=== PATIENT | male | born 1955 | race Caucasian/White ===

== ENCOUNTER → 2018-03-14 | Outpatient (CLI) | payer BC ==
--- NOTE | 2018-03-14 11:31 | CT ---
CT CHEST FOR PULMONARY EMBOLISM. EXAMINATION TYPE: CT angio chest DATE OF EXAM: 03/14/2018 INDICATION: Shortness of breath for [address] DLP: 516 mGycm, Automated exposure control for dose reduction was used. CONTRAST: Patient injected with 100 mL of Isovue 370. COMPARISON: None TECHNIQUE: CT of the chest is performed on a spiral scan at 2 mm thick sections. Study is performed with intravenous contrast timed for evaluation for pulmonary embolism. This will limit additional po rtions of the evaluation. 3-D MIP images reconstructed by the technologist are reviewed on the compu ter in the coronal and sagittal planes. FINDINGS: No persistent filling defects are evident to suggest an acute pulmonary embolism. No mediastinal or hilar adenopathy enlarged by CT criteria is evident. The ascending aorta diameter at the level of the main pulmonary artery is 3.7 cm. The main pulmonary artery diameter at the bifur cation is 2.9 cm. There are a few punctate nodules present. Some thickening is at the apices. There is a 0.4 cm nodule within the periphery of the right upper lobe. Series 11 image 29. Peripheral based nodule at the pleu ral margin measures 0.3 cm. Series 11 image 31. There is an anterior right upper lobe nodule measurin g 0.3 cm. Series 11 image 32. Additional peripheral nodule measuring 0.4 cm is in the posterior later al right upper lobe. Series 11 image 35. There is a right upper lobe nodule measuring 0.4 cm. Series 11 image 43. In retrospect, these densities as well as the apical thickening appears stable findings are better visualized on the standard CT chest in the low dose CT. Limited CT section through the upper abdomen are unremarkable. IMPRESSIONS: 1. Apical thickening appears stable. Continued monitoring is recommended. 2. Better visualization of stable appearing nodules within the right upper lobe periphery discussed a emma. Monitoring is recommended. Recommendations: 1. Follow-up chest CT with contrast 6 months.
--- NOTE | 2018-03-14 12:07 | EST ---
EXERCISE STRESS AGE: 62 SEX: M HT: 6" WT: 180 PROTOCOL: Chu Stress Test STAGE: I DURATION OF EXERCISE: 4:49 HEART RATE REST: 71 BLOOD PRESSURE REST: 104/72 MAXIMUM HEART RATE ACHIEVED: 116 MAXIMUM BLOOD PRESSURE: 129/60 85% MPHR: 136 100% MPHR: 160 METS: 6.4 INDICATIONS: Shortness of breath. CLINICAL INFORMATION: Patient was exercised for a total period of 4 minutes. Peak heart rate of 116 was achieved. Maximum blood pressure of 129/60 mmHg was noted. Resting EKG shows normal sinus rhythm with normal clear interval and QRS duration and normal ST-T waves. Occasional PACs and PVCs were noted in the postexercise period and short runs of atrial tachycardia were noted. FINAL IMPRESSION: This exercise status is inconclusive to diagnose ischemia because of limited patient's exercise tolerance. No ST-segment depression suggestive of ischemia was noted. In the recovery period patient developed atrial fibrillation with a controlled rate. In the recovery period, patient developed atrial fibrillation with a controlled rate. MMODL / IJN: [id number] /
== END | disposition home or self-care (01) ==
LOC: RADCTMAIN 08:52
PROVIDERS: ATTEND Family Medicine
DX: R91.8 Other nonspecific abnormal finding of lung field (principal); R94.39 Abnormal result of other cardiovascular function study; I48.91 Unspecified atrial fibrillation
CPT/HCPCS: 93017; 71275; Q9967

== ENCOUNTER → 2018-04-11 | Outpatient (CLI) | payer BC ==
[~2018-04-11] MED LIST: REGADENOSON 0.4 MG/5 ML SYRINGE IV ONE
--- NOTE | 2018-04-11 11:09 | NM ---
EXAMINATION TYPE: NM stress lexiscan cardiolite DATE OF EXAM: 04/11/2018 COMPARISON: NONE HISTORY: A. Fib TECHNIQUE: After the intravenous administration of 10.04 mCi Tc 99m Sestamibi - Cardiolite resting S PECT images acquired 45 minutes post injection. The patient received 0.4mg Lexiscan, 27.1 mCi Tc 99m Sestamibi - Stress images obtained [address] injection FINDINGS: No fixed or reversible perfusion defects are evident SPECT imaging. Some dyskinesia of the distal inferior wall is present. Ejection fraction of 59% is normal. IMPRESSION: 1. No stress-induced ischemic change. 2. Mild inferior wall motion dyskinesia. 3. Normal ejection fraction.
--- NOTE | 2018-04-11 18:15 | EST ---
EXERCISE STRESS DATE OF SERVICE: 04/11/2018 AGE: 63 SEX: Male. HT: 6 feet 0 inches WT: 182 PROTOCOL: Lexiscan Cardiolite STAGE: DURATION OF EXERCISE: HEART RATE REST: 59 BLOOD PRESSURE REST: 129/78 MAXIMUM HEART RATE ACHIEVED: 101 MAXIMUM BLOOD PRESSURE: 130/73 85% MPHR: 135 100% MPHR: 159 METS: INDICATIONS: Shortness of breath, chest pain. CLINICAL INFORMATION: Baseline rhythm is sinus mechanism, rate of 59, borderline first-degree AV block. Baseline blood pressure 129/78 mmHg. Patient received injection of Lexiscan. Electrocardiographic monitoring revealed no evidence of diagnostic ischemic ST deviation. Cardiolite was injected per protocol. CONCLUSION: 1. Non-diagnostic electrocardiographic stress testing. 2. Nuclear images will be reported separately. MMODL / IJN: [id number] /
== END | disposition home or self-care (01) ==
LOC: RADNMMAIN 07:47
PROVIDERS: ATTEND Family Medicine
DX: G24.9 Dystonia, unspecified (principal); I48.91 Unspecified atrial fibrillation
CPT/HCPCS: 93017; 78452; A9500; J2785

== ENCOUNTER → 2018-04-19 | Outpatient (CLI) | payer BC ==
--- NOTE | 2018-04-19 18:28 | ECHOF ---
Referral Reason:R06.02 Shortness of breath,R91.8 Abn lung findings MEASUREMENTS -------- HEIGHT: 182.9 cm WEIGHT: 81.6 kg BP: 127/70 RVIDd: 3.3 cm (< 3.3) IVSd: 1.3 cm (0.6 - 1.1) LVIDd: 4.4 cm (3.9 - 5.3) LVPWd: 1.3 cm (0.6 - 1.1) IVSs: 1.8 cm LVIDs: 2.8 cm LVPWs: 1.6 cm LA Diam: 3.3 cm (2.7 - 3.8) LAESV Index (A-L): 24.51 ml/m Ao Diam: 3.7 cm (2.0 - 3.7) AV Cusp: 2.9 cm (1.5 - 2.6) MV EXCURSION: 21.171 mm (> 18.000) MV EF SLOPE: 161 mm/s (70 - 150) EPSS: 0.6 cm MV E Deondre: 0.91 m/s MV DecT: 195 ms MV A Deondre: 0.72 m/s MV E/A Ratio: 1.26 FINDINGS -------- Sinus rhythm. This was a technically adequate study. The left ventricular size is normal. There is mild concentric left ventricular hypertrophy. Overa ll left ventricular systolic function is normal with, an EF between 60 - 65 %. The right ventricle is mildly enlarged. Normal LA size by volume 22+/-6 ml/m2. The right atrium is normal in size. The aortic valve is trileaflet and appears structurally normal. The mitral valve is normal. The tricuspid valve appears structurally normal. The pulmonic valve was not well visualized. The aortic root size is normal. Normal inferior vena cava with normal inspiratory collapse consistent with estimated right atrial pre ssure of 5 mmHg. The inferior vena cava is mildly dilated. There is no pericardial effusion. CONCLUSIONS -------- 1. Sinus rhythm. 2. This was a technically adequate study. 3. The left ventricular size is normal. 4. There is mild concentric left ventricular hypertrophy. 5. Overall left ventricular systolic function is normal with, an EF between 60 - 65 %. 6. The right ventricle is mildly enlarged. 7. Normal LA size by volume 22+/-6 ml/m2. 8. The right atrium is normal in size. 9. The aortic valve is trileaflet and appears structurally normal. 10. The mitral valve is normal. 11. The tricuspid valve appears structurally normal. 12. The pulmonic valve was not well visualized. 13. The aortic root size is normal. 14. Normal inferior vena cava with normal inspiratory collapse consistent with estimated right atrial pressure of 5 mmHg. 15. The inferior vena cava is mildly dilated. 16. There is no pericardial effusion. VFX ARTIST: Cindi German RDCS
== END ==
LOC: RADECHMAIN 13:06
PROVIDERS: ATTEND Family Medicine
DX: I51.7 Cardiomegaly (principal)
CPT/HCPCS: 93306

== ENCOUNTER 2018-11-25 16:29 | Emergency (ER) | payer BC ==
[2018-11-25] MEDS ORDERED: ASPIRIN 81 MG PO STA (16:39)
[2018-11-25] MEDS ORDERED: IPRATROPIUM-ALBUTEROL 3 ML NEB INHALATION STA (16:48)
--- NOTE | 2018-11-25 16:52 | ED ---
General Adult HPI - General Chief complaint: Shortness of Breath Stated complaint: CHEST PAIN Time Seen by Provider: 11/25/18 16:38 Source: patient Mode of arrival: wheelchair Limitations: no limitations - History of Present Illness Initial comments: Patient is a 63-year-old male who presents with a chief complaint of shortness of breath. Patient states that he is doing this issue since April when he was evaluated by his primary care doctor and mounter smoking pipe. States that he had a complete cardiac workup which is unremarkable. Patient takes 350 mg of aspirin daily, states he quit smoking a couple months ago, states that he is a daily drinker, drinking 2-3 cocktails per day. Patient states that last night his shortness of breath became worse and had to sleep in a chair. He states that lying flat makes his symptoms worse. He states that deep breathing makes his symptoms worse. Patient does have exertional shortness of breath. Timing is constant. - Related Data Home Medications Medication Instructions Recorded Confirmed Aspirin EC [Ecotrin] 325 mg PO DAILY 11/25/18 11/25/18 Omeprazole [PriLOSEC] 20 mg PO DAILY PRN 11/25/18 11/25/18 Previous Rx's Medication Instructions Recorded Albuterol Inhaler [Ventolin Hfa 1 - 2 puff INHALATION RT-Q4H #1 11/25/18 Inhaler] inhaler Doxycycline Hyclate 100 mg PO Q12H #10 tab 11/25/18 predniSONE 60 mg PO DAILY #12 tab 11/25/18 Allergies Allergy/AdvReac Type Severity Reaction Status Date / Time Penicillins AdvReac Anaphylaxis Verified 11/25/18 16:56 Review of Systems ROS Statement: Those systems with pertinent positive or pertinent negative responses have been documented in the HPI. ROS Other: All systems not noted in ROS Statement are negative. Respiratory: Reports: cough Cardiovascular: Reports: dyspnea on exertion Past Medical History Past Medical History: GERD/Reflux History of Any Multi-Drug Resistant Organisms: None Reported Past Surgical History: Orthopedic Surgery Past Psychological History: No Psychological Hx Reported Smoking Status: Never smoker Past Alcohol Use History: Daily Past Drug Use History: Marijuana General Exam Limitations: no limitations General appearance: alert, in no apparent distress Head exam: Present: atraumatic, normocephalic Eye exam: Present: normal appearance ENT exam: Present: normal exam Neck exam: Present: normal inspection Respiratory exam: Present: normal lung sounds bilaterally. Absent: respiratory distress, wheezes, chest wall tenderness, accessory muscle use Cardiovascular Exam: Present: regular rate, normal rhythm GI/Abdominal exam: Present: soft. Absent: distended, tenderness Rectal exam: Present: deferred Extremities exam: Present: normal inspection, other (Lower extremities are symmetric, no swelling or pitting edema noted). Absent: pedal edema Back exam: Present: normal inspection Neurological exam: Present: alert, oriented X3, CN II-XII intact, normal gait Psychiatric exam: Present: normal affect, normal mood Skin exam: Present: warm, dry, intact Course Vital Signs 11/25/18 11/25/18 11/25/18 16:33 17:08 17:15 Temperature 98.4 F Pulse Rate 88 82 80 Respiratory 18 16 14 Rate Blood Pressure 112/73 O2 Sat by Pulse 94 L Oximetry 11/25/18 11/25/18 17:30 18:00 Temperature Pulse Rate 84 77 Respiratory 24 20 Rate Blood Pressure 105/77 131/72 O2 Sat by Pulse 97 98 Oximetry Medical Decision Making - Medical Decision Making Patient presents the chief complaint shortness of breath. On initial evaluation, vitals are stable, oxygen saturation is 94% on room air, patient does have a smoking history. He quit a couple months ago. Patient states that he had a complete cardiac evaluation in April which was unremarkable. Patient will be evaluated today with basic labs including cardiac enzymes, x-ray of the chest, and d-dimer to rule out pulmonary embolism. Patient takes 350 mg of aspirin daily, no additional aspirin was given in emergency department, patient given a DuoNeb treatment. EKG performed at 1708 shows normal sinus rhythm rate of 80 beats per minute, sinus within normal limits, no acute signs of ischemia. When compared to previous study performed on 03/14/2018, waveform similar, no acute changes. 6:14 PM Laboratory evaluation this patient what was on count of 12.8, labs are otherwise grossly unremarkable. Chest x-ray does not show any evidence of pneumonia however there is hyperinflation consistent with COPD. Reevaluation, the patient states that he is feeling much improved after one breathing treatment. At this time, patient likely dealing with an aspect bronchitis and COPD. He was prescribed albuterol, doxycycline, and prednisone. He was instructed to follow up with primary care and cardiology in one to 2 days. I had an in-depth conversation with the patient regarding concerning signs and symptoms that should prompt immediate return to the emergency department. He has understand and verbalize understanding by teach back. - Lab Data Result diagrams: 11/25/18 17:05 11/25/18 17:05 Lab Results 11/25/18 11/25/18 11/25/18 Range/Units 17:05 17:05 17:05 WBC 12.8 H (3.8-10.6) k/uL RBC 4.27 L (4.30-5.90) m/uL Hgb 13.0 (13.0-17.5) gm/dL Hct 41.0 (39.0-53.0) % MCV 96.1 (80.0-100.0) fL MCH 30.4 (25.0-35.0) pg MCHC 31.6 (31.0-37.0) g/dL RDW 12.7 (11.5-15.5) % Plt Count 216 (150-450) k/uL Neutrophils % 71 % Lymphocytes % 15 % Monocytes % 11 % Eosinophils % 1 % Basophils % 0 % Neutrophils # 9.1 H (1.3-7.7) k/uL Lymphocytes # 1.9 (1.0-4.8) k/uL Monocytes # 1.4 H (0-1.0) k/uL Eosinophils # 0.1 (0-0.7) k/uL Basophils # 0.1 (0-0.2) k/uL D-Dimer (<0.60) mg/L FEU Sodium 137 (137-145) mmol/L Potassium 4.1 (3.5-5.1) mmol/L Chloride 105 (98-107) mmol/L Carbon Dioxide 26 (22-30) mmol/L Anion Gap 6 mmol/L BUN 18 (9-20) mg/dL Creatinine 0.92 (0.66-1.25) mg/dL Est GFR (CKD-EPI)AfAm >90 (>60 ml/min/1.73 sqM) Est GFR (CKD-EPI)NonAf 90 (>60 ml/min/1.73 sqM) Glucose 121 H (74-99) mg/dL Calcium 9.1 (8.4-10.2) mg/dL Total Bilirubin 1.3 (0.2-1.3) mg/dL AST 27 (17-59) U/L ALT 22 (21-72) U/L Alkaline Phosphatase 55 (38-126) U/L Troponin I (0.000-0.034) ng/mL NT-Pro-B Natriuret Pep 414 pg/mL Total Protein 7.2 (6.3-8.2) g/dL Albumin 4.4 (3.5-5.0) g/dL 11/25/18 11/25/18 Range/Units 17:05 17:05 WBC (3.8-10.6) k/uL RBC (4.30-5.90) m/uL Hgb (13.0-17.5) gm/dL Hct (39.0-53.0) % MCV (80.0-100.0) fL MCH (25.0-35.0) pg MCHC (31.0-37.0) g/dL RDW (11.5-15.5) % Plt Count (150-450) k/uL Neutrophils % % Lymphocytes % % Monocytes % % Eosinophils % % Basophils % % Neutrophils # (1.3-7.7) k/uL Lymphocytes # (1.0-4.8) k/uL Monocytes # (0-1.0) k/uL Eosinophils # (0-0.7) k/uL Basophils # (0-0.2) k/uL D-Dimer 0.18 (<0.60) mg/L FEU Sodium (137-145) mmol/L Potassium (3.5-5.1) mmol/L Chloride (98-107) mmol/L Carbon Dioxide (22-30) mmol/L Anion Gap mmol/L BUN (9-20) mg/dL Creatinine (0.66-1.25) mg/dL Est GFR (CKD-EPI)AfAm (>60 ml/min/1.73 sqM) Est GFR (CKD-EPI)NonAf (>60 ml/min/1.73 sqM) Glucose (74-99) mg/dL Calcium (8.4-10.2) mg/dL Total Bilirubin (0.2-1.3) mg/dL AST (17-59) U/L ALT (21-72) U/L Alkaline Phosphatase (38-126) U/L Troponin I <0.012 (0.000-0.034) ng/mL NT-Pro-B Natriuret Pep pg/mL Total Protein (6.3-8.2) g/dL Albumin (3.5-5.0) g/dL Disposition Clinical Impression: Bronchitis Disposition: HOME SELF-CARE Condition: Good Prescriptions: Doxycycline Hyclate 100 mg PO Q12H #10 tab predniSONE 60 mg PO DAILY #12 tab Albuterol Inhaler [Ventolin Hfa Inhaler] 1 - 2 puff INHALATION RT-Q4H #1 inhaler Is patient prescribed a controlled substance at d/c from ED?: No Referrals: Dennis Padilla MD [Primary Care Provider] - 1-2 days
[2018-11-25 17:15] LABS: Basophils # (A) 0.1 k/uL (0-0.2); Basophils % (A) 0 %; Eosinophils # (A) 0.1 k/uL (0-0.7); Eosinophils % (A) 1 %; Lymphocytes # (A) 1.9 k/uL (1.0-4.8); Lymphocytes % (A) 15 %; MCH 30.4 pg (25.0-35.0); MCHC 31.6 g/dL (31.0-37.0); MCV 96.1 fL (80.0-100.0); Mean Platelet Volume 7.8; Monocytes # (A) 1.4 k/uL (0-1.0); Monocytes % (A) 11 %; Neutrophils # (A) 9.1 k/uL (1.3-7.7); Neutrophils % (A) 71 %; Platelet Count 216 k/uL (150-450); RBC 4.27 m/uL (4.30-5.90); RDW 12.7 % (11.5-15.5); WBC 12.8 k/uL (3.8-10.6)
[2018-11-25 17:24] LABS: ALT 22 U/L (21-72); AST 27 U/L (17-59); Albumin 4.4 g/dL (3.5-5.0); Alkaline Phosphatase 55 U/L (38-126); Anion Gap 6 mmol/L; Blood Urea Nitrogen 18 mg/dL (9-20); Calcium 9.1 mg/dL (8.4-10.2); Carbon Dioxide 26 mmol/L (22-30); Chloride 105 mmol/L (98-107); Glucose 121 mg/dL (74-99); Potassium 4.1 mmol/L (3.5-5.1); Sodium 137 mmol/L (137-145); Total Bilirubin 1.3 mg/dL (0.2-1.3); Total Protein 7.2 g/dL (6.3-8.2)
--- NOTE | 2018-11-25 17:57 | XR ---
EXAMINATION TYPE: XR chest 2V DATE OF EXAM: 11/25/2018 COMPARISON: CT pulmonary angiogram 03/14/2018 HISTORY: Dyspnea and chest pain TECHNIQUE: Frontal and lateral views of the chest are obtained. FINDINGS: There is no focal air space opacity, pleural effusion, or pneumothorax seen. Lungs are hyp erinflated with flattening of the diaphragms. The cardiac silhouette size is within normal limits. The osseous structures are intact. IMPRESSION: 1. No acute cardiopulmonary process. 2. Radiographic findings suggestive of COPD.
[2018-11-25] MEDS ORDERED: predniSONE 20 MG TAB PO STA (18:12)
[2018-11-25 19:08] VITALS: BP 103/72; PULSE 75; RESP 16; TEMP 98
== END 2018-11-25 19:08 | disposition home or self-care (01) ==
LOC: EC 16:29
DX: J40 Bronchitis, not specified as acute or chronic (principal); Z87.891 Personal history of nicotine dependence; Z79.82 Long term (current) use of aspirin; Z88.0 Allergy status to penicillin
CPT/HCPCS: 36415; 94640; 93005; 85379; 83880; 80053; 84484; 85025; 71046; 99285; J7512

== ENCOUNTER → 2019-01-08 | Outpatient (CLI) | payer BC | LOC: CPPFTMAIN 12:59 | PROVIDERS: ATTEND Family Medicine | DX: J44.9 Chronic obstructive pulmonary disease, unspecified (principal); Z88.0 Allergy status to penicillin | CPT/HCPCS: 94060; 94726; 94729 ==

== ENCOUNTER → 2019-03-08 | Outpatient (CLI) | payer BC ==
--- NOTE | 2019-03-08 17:04 | CT ---
EXAMINATION TYPE: CT chest w con DATE OF EXAM: 03/08/2019 COMPARISON: 03/14/2018 HISTORY: Pulmonary nodules. CT DLP: 465 mGycm, Automated exposure control for dose reduction was used. CONTRAST: Performed injected with 100ml mL of Isovue 300. TECHNIQUE: Axial images were obtained at 5 mm thick sections. Reconstructed images are reviewed on [employer] computer in the coronal plane. FINDINGS: Portion of the thyroid visualized is normal. No suspicious lung nodules or focal infiltrates are present. Previous nodules identified in the perip shadia of the right upper lobe are not apparent. A very tiny peripheral based nodule measuring 0.3 cm m ay have been present previously, series 4 image 16 There is a 1.2 cm lymph node in the pretracheal space. Some tiny shoddy lymphadenopathies in the supe rior mediastinum. The ascending aorta diameter at the level of the main pulmonary artery is 3.5 cm. The main pulmonary artery diameter at the bifurcation is 8.2 cm. Small to moderate pericardial effusion is present. Thi s has a depth of 1.[address] sections are obtained through the upper abdomen. Abdomen is essentially unremarkable. IMPRESSIONS: 1. Pericardial effusion. This is an interval development. 2. The previous pulmonary nodules have apparently resolved.
== END | disposition home or self-care (01) ==
LOC: RADCTMAIN 14:56
PROVIDERS: ATTEND Internal Medicine Critical Care Medicine
DX: I31.3 Pericardial effusion (noninflammatory) (principal)
CPT/HCPCS: 71260; Q9967

== ENCOUNTER 2019-04-08 16:29 | Outpatient (CLI) | payer BC ==
[2019-04-08 17:57] LABS: Basophils # (A) 0.1 k/uL (0-0.2); Basophils % (A) 0 %; Eosinophils # (A) 0.1 k/uL (0-0.7); Eosinophils % (A) 0 %; HCT 40.3 % (39.0-53.0); HGB 13.7 gm/dL (13.0-17.5); Lymphocytes # (A) 1.9 k/uL (1.0-4.8); Lymphocytes % (A) 11 %; MCHC 33.8 g/dL (31.0-37.0); MCV 94.5 fL (80.0-100.0); Mean Platelet Volume 6.1; Monocytes # (A) 1.5 k/uL (0-1.0); Monocytes % (A) 9 %; Neutrophils # (A) 14.4 k/uL (1.3-7.7); Neutrophils % (A) 79 %; Platelet Count 327 k/uL (150-450); RBC 4.27 m/uL (4.30-5.90); RDW 12.4 % (11.5-15.5); WBC 18.2 k/uL (3.8-10.6)
[2019-04-08 18:09] LABS: Calcium 9.4 mg/dL (8.4-10.2); Potassium 5.4 mmol/L (3.5-5.1); Total Bilirubin 1.1 mg/dL (0.2-1.3); Total Protein 7.5 g/dL (6.3-8.2)
--- NOTE | 2019-04-09 09:33 | XR ---
EXAMINATION TYPE: XR chest 2V DATE OF EXAM: 04/08/2019 COMPARISON: 11/25/18 HISTORY: Shortness of breath TECHNIQUE: Frontal and lateral views of the chest are obtained. FINDINGS: Scattered senescent parenchymal changes noted. Hyperinflation compatible with COPD. No evidence for infiltrate. No evidence for atelectasis. Heart size is stable. Mediastinal structures are stable and grossly unremarkable. No evidence for hilar prominence. Degenerative changes dorsal spine. IMPRESSION: 1. No evidence for acute pulmonary disease.
== END 2019-04-08 17:59 | disposition home or self-care (01) ==
LOC: RADXRMAIN 16:29
PROVIDERS: ATTEND Family Medicine
DX: J44.0 Chronic obstructive pulmonary disease with (acute) lower respiratory infection (principal); J20.9 Acute bronchitis, unspecified; R06.02 Shortness of breath; R50.9 Fever, unspecified
CPT/HCPCS: 71046; 80053; 85025; 87502; 93005

== ENCOUNTER 2019-04-09 13:10 | Inpatient (IN) | payer BC ==
[2019-04-09] MEDS ORDERED: DILTIAZEM DRIP BOLUS FROM BAG 1 MG SOLN IV ONE (14:05)
--- NOTE | 2019-04-09 14:10 | ED ---
General Adult HPI - General Chief complaint: Recheck/Abnormal Lab/Rx Stated complaint: A fib, sent by DR Time Seen by Provider: 04/09/19 13:23 Source: patient, RN notes reviewed Mode of arrival: ambulatory Limitations: no limitations - History of Present Illness Initial comments: Patient is a pleasant 64-year-old male presenting to the emergency department with reported atrial fibrillation. Patient has had mild cough for the last couple of days and did see his doctor. Patient was sent for chest x-ray and EKG. Patient called prior to arrival and advised come to the hospital secondary to dysrhythmia on EKG. Patient also reportedly had a recent computed tomography scan done showing pericardial effusion. Patient denies any palpitations. No chest pain. Patient did start azithromycin yesterday and feels like his cough is actually improved some. No fevers. Patient has chronic dyspnea that is unchanged. No new dyspnea. - Related Data Home Medications Medication Instructions Recorded Confirmed Aspirin EC [Ecotrin] 325 mg PO DAILY 11/25/18 04/09/19 Omeprazole [PriLOSEC] 20 mg PO DAILY PRN 11/25/18 04/09/19 Albuterol Inhaler [Ventolin Hfa 2 puff INHALATION RT-Q6H PRN 04/09/19 04/09/19 Inhaler] Ascorbic Acid [Vitamin C] 500 mg PO DAILY 04/09/19 04/09/19 Azithromycin [Zithromax Z-pack] See Taper PO DIRECTED 04/09/19 04/09/19 Beclomethasone Dip 80 Mcg/Puff 2 puff INHALATION RT-BID 04/09/19 04/09/19 [Qvar] Multivitamins, Thera [Multivitamin 1 tab PO DAILY 04/09/19 04/09/19 (formulary)] [place]-3 Fatty Acids/Fish Oil [Fish 1 cap PO DAILY 04/09/19 04/09/19 Oil 1,000 mg Softgel] Umeclidinium Brm/Vilanterol Tr 1 puff INHALATION RT-DAILY 04/09/19 04/09/19 [Anoro Ellipta 62.5-25 Mcg INH] Allergies Allergy/AdvReac Type Severity Reaction Status Date / Time Penicillins Allergy Anaphylaxis Verified 04/09/19 14:40 Review of Systems ROS Statement: Those systems with pertinent positive or pertinent negative responses have been documented in the HPI. ROS Other: All systems not noted in ROS Statement are negative. Constitutional: Denies: fever Eyes: Denies: eye pain ENT: Denies: ear pain Respiratory: Reports: as per HPI, cough Cardiovascular: Denies: chest pain, palpitations Endocrine: Denies: fatigue Gastrointestinal: Denies: abdominal pain Genitourinary: Denies: dysuria Musculoskeletal: Denies: back pain Skin: Denies: rash Neurological: Denies: weakness Past Medical History Past Medical History: Atrial Fibrillation, COPD, GERD/Reflux History of Any Multi-Drug Resistant Organisms: None Reported Past Surgical History: Orthopedic Surgery Additional Past Surgical History / Comment(s): rt arm Past Psychological History: No Psychological Hx Reported Smoking Status: Never smoker Past Alcohol Use History: Daily Past Drug Use History: Marijuana General Exam Limitations: no limitations General appearance: alert, in no apparent distress Head exam: Present: normocephalic Eye exam: Present: normal appearance, PERRL ENT exam: Present: normal oropharynx Neck exam: Present: normal inspection Respiratory exam: Present: normal lung sounds bilaterally Cardiovascular Exam: Present: tachycardia, irregular rhythm Expanded Peripheral pulses: 2+: Radial (R), Radial (L), Dorsalis Pedis (R), Dorsalis Pedis (L) GI/Abdominal exam: Present: soft. Absent: tenderness Extremities exam: Present: normal inspection. Absent: pedal edema, calf tenderness Neurological exam: Present: alert Psychiatric exam: Present: normal affect, normal mood Skin exam: Present: normal color Course Vital Signs 04/09/19 04/09/19 04/09/19 13:16 14:00 15:00 Temperature 97.8 F Pulse Rate 85 134 H 97 Respiratory 20 15 Rate Blood Pressure 122/79 117/74 O2 Sat by Pulse 99 94 L Oximetry EKG Findings - EKG Comments: EKG Findings:: A. fib with RVR, rate 139. QRS 76. QT 288. QTC 438. Left axis. Inferior Q waves. Poor R-wave progression. Q wave in lead V1 and V2. No acute ST change. Medical Decision Making - Medical Decision Making Patient reevaluated and resting comfortably in bed. Heart rate has improved to between 110/120. Patient and family updated on results and plan. Case was discussed in detail with Dr. Padilla, who will admit his patient. He does request heparin and cardiology consult and echo to reassess pericardial effusion. - Lab Data Result diagrams: 04/09/19 13:50 04/09/19 13:50 Lab Results 04/09/19 04/09/19 04/09/19 Range/Units 13:50 13:50 13:50 WBC 17.5 H (3.8-10.6) k/uL RBC 4.17 L (4.30-5.90) m/uL Hgb 13.4 (13.0-17.5) gm/dL Hct 38.6 L (39.0-53.0) % MCV 92.5 (80.0-100.0) fL MCH 32.2 (25.0-35.0) pg MCHC 34.8 (31.0-37.0) g/dL RDW 12.6 (11.5-15.5) % Plt Count 331 (150-450) k/uL Neutrophils % 75 % Lymphocytes % 13 % Monocytes % 9 % Eosinophils % 1 % Basophils % 0 % Neutrophils # 13.2 H (1.3-7.7) k/uL Lymphocytes # 2.2 (1.0-4.8) k/uL Monocytes # 1.6 H (0-1.0) k/uL Eosinophils # 0.1 (0-0.7) k/uL Basophils # 0.1 (0-0.2) k/uL PT 10.8 (9.0-12.0) sec INR 1.0 (<1.2) APTT 24.9 (22.0-30.0) sec Sodium 136 L (137-145) mmol/L Potassium 5.0 (3.5-5.1) mmol/L Chloride 100 (98-107) mmol/L Carbon Dioxide 26 (22-30) mmol/L Anion Gap 10 mmol/L BUN 22 H (9-20) mg/dL Creatinine 1.18 (0.66-1.25) mg/dL Est GFR (CKD-EPI)AfAm 76 (>60 ml/min/1.73 sqM) Est GFR (CKD-EPI)NonAf 66 (>60 ml/min/1.73 sqM) Glucose 98 (74-99) mg/dL Calcium 9.6 (8.4-10.2) mg/dL Magnesium 2.2 (1.6-2.3) mg/dL Total Bilirubin 0.9 (0.2-1.3) mg/dL AST 19 (17-59) U/L ALT 21 (21-72) U/L Alkaline Phosphatase 80 (38-126) U/L Troponin I (0.000-0.034) ng/mL Total Protein 7.4 (6.3-8.2) g/dL Albumin 3.9 (3.5-5.0) g/dL TSH 1.040 (0.465-4.680) mIU/L Free T4 1.35 (0.78-2.19) ng/dL Free T3 pg/mL 3.0 (2.8-5.3) pg/ml 04/09/19 Range/Units 13:50 WBC (3.8-10.6) k/uL RBC (4.30-5.90) m/uL Hgb (13.0-17.5) gm/dL Hct (39.0-53.0) % MCV (80.0-100.0) fL MCH (25.0-35.0) pg MCHC (31.0-37.0) g/dL RDW (11.5-15.5) % Plt Count (150-450) k/uL Neutrophils % % Lymphocytes % % Monocytes % % Eosinophils % % Basophils % % Neutrophils # (1.3-7.7) k/uL Lymphocytes # (1.0-4.8) k/uL Monocytes # (0-1.0) k/uL Eosinophils # (0-0.7) k/uL Basophils # (0-0.2) k/uL PT (9.0-12.0) sec INR (<1.2) APTT (22.0-30.0) sec Sodium (137-145) mmol/L Potassium (3.5-5.1) mmol/L Chloride (98-107) mmol/L Carbon Dioxide (22-30) mmol/L Anion Gap mmol/L BUN (9-20) mg/dL Creatinine (0.66-1.25) mg/dL Est GFR (CKD-EPI)AfAm (>60 ml/min/1.73 sqM) Est GFR (CKD-EPI)NonAf (>60 ml/min/1.73 sqM) Glucose (74-99) mg/dL Calcium (8.4-10.2) mg/dL Magnesium (1.6-2.3) mg/dL Total Bilirubin (0.2-1.3) mg/dL AST (17-59) U/L ALT (21-72) U/L Alkaline Phosphatase (38-126) U/L Troponin I <0.012 (0.000-0.034) ng/mL Total Protein (6.3-8.2) g/dL Albumin (3.5-5.0) g/dL TSH (0.465-4.680) mIU/L Free T4 (0.78-2.19) ng/dL Free T3 pg/mL (2.8-5.3) pg/ml - Radiology Data Radiology results: report reviewed (Chest x-ray from earlier in the day reported as no acute process) Critical Care Time Critical Care Time: Yes Total Critical Care Time: 33 Disposition Clinical Impression: Atrial fibrillation with RVR, Pericardial effusion Disposition: ADMITTED IP TO THIS HOSP Is patient prescribed a controlled substance at d/c from ED?: No Referrals: Dennis Padilla MD [Primary Care Provider] - 1-2 days Decision Time: 15:32
[2019-04-09] MEDS: DILTIAZEM 125 MG in SODIUM CHLORIDE 0.9% 100 ML IV SCH (14:24)
[2019-04-09 14:30] LABS: Albumin 3.9 g/dL (3.5-5.0); Calcium 9.6 mg/dL (8.4-10.2); Magnesium 2.2 mg/dL (1.6-2.3); Total Bilirubin 0.9 mg/dL (0.2-1.3); Total Protein 7.4 g/dL (6.3-8.2)
[2019-04-09 14:33] LABS: Basophils # (A) 0.1 k/uL (0-0.2); Basophils % (A) 0 %; Eosinophils # (A) 0.1 k/uL (0-0.7); Eosinophils % (A) 1 %; HCT 38.6 % (39.0-53.0); HGB 13.4 gm/dL (13.0-17.5); Lymphocytes # (A) 2.2 k/uL (1.0-4.8); Lymphocytes % (A) 13 %; MCH 32.2 pg (25.0-35.0); MCHC 34.8 g/dL (31.0-37.0); MCV 92.5 fL (80.0-100.0); Monocytes # (A) 1.6 k/uL (0-1.0); Monocytes % (A) 9 %; Neutrophils # (A) 13.2 k/uL (1.3-7.7); Neutrophils % (A) 75 %; Platelet Count 331 k/uL (150-450); RBC 4.17 m/uL (4.30-5.90); RDW 12.6 % (11.5-15.5); WBC 17.5 k/uL (3.8-10.6)
[2019-04-09 14:38] LABS: Partial Thromboplastin Time 24.9 sec (22.0-30.0); Prothrombin Time 10.8 sec (9.0-12.0)
[2019-04-09 14:47] LABS: T4, Free (Free Thyroxine) 1.35 ng/dL (0.78-2.19)
[2019-04-09] MEDS ORDERED: HEPARIN SODIUM,PORCINE 5,000 UNIT/ML 1 ML VIAL IV ONE (15:33)
[2019-04-09] MEDS ORDERED: HEPARIN SOD,PORK IN 0.45% NACL 25,000 UNIT in 0.45% NACL 1 250ML.BAG IV SCH (15:45)
[2019-04-09] MEDS ORDERED: AZITHROMYCIN 250 MG TAB PO SCH (18:15)
[2019-04-09] MEDS: AZITHROMYCIN 250 MG PO SCH (19:10)
[2019-04-09] MEDS: PREDNISONE 20 MG PO SCH (19:10)
[2019-04-09] MEDS ORDERED: IPRATROPIUM 0.5 MG/2.5 ML NEBU INHALATION SCH (20:00)
[2019-04-09] MEDS ORDERED: FLUTICASONE 110 MCG INHALER INHALATION SCH (20:00)
[2019-04-09] MEDS: QVAR 80 MCG INHALATION SCH (20:40)
[2019-04-09] MEDS: HEPARIN SODIUM,PORCINE 5,000 UNIT/ML 1 ML VIAL IV PRN (23:25)
[2019-04-10 06:12] LABS: Mean Platelet Volume 6.8; Platelet Count 273 k/uL (150-450)
[2019-04-10 06:47] LABS: Cholesterol 155 mg/dL (<200); HDL Cholesterol 52 mg/dL (40-60); LDL Cholesterol,Calculated 91 mg/dL (0-99); Triglycerides 61 mg/dL (<150)
[2019-04-10] MEDS: HEPARIN SODIUM,PORCINE 5,000 UNIT/ML 1 ML VIAL IV PRN (07:09)
[2019-04-10] MEDS ORDERED: FORMOTEROL FUMARATE 20 MCG/2 ML NEBU INHALATION SCH (08:00)
[2019-04-10] MEDS: QVAR 80 MCG INHALATION SCH ×2 (08:49→20:04)
[2019-04-10] MEDS: ANORO ELLIPTA INHALATION SCH (08:49)
[2019-04-10] MEDS: NAPROXEN 250 MG TAB PO SCH ×2 (10:19→20:02)
[2019-04-10] MEDS: COLCHICINE 0.6 MG EACH PO SCH ×2 (10:20→20:16)
--- NOTE | 2019-04-10 10:35 | P.CRDCN ---
History of Present Illness Consult date: 04/10/19 Requesting physician: Demi Gonzalez Consult reason: atrial fibrillation Chief complaint: A. fib History of present illness: This is a pleasant 64-year-old male patient with history of emphysema, prior history of smoking, who had an outpatient CAT scan performed to evaluate pulmonary nodule, and severity of his emphysema, he was noted on the CAT scan to have a pericardial effusion. Subsequently he did see his family care doctor in the office, who gave him a steroid injection and started him on antibiotics because of a suspected bronchitis. He was sent back to the emergency room to undergo a chest x-ray as well as EKG, he was discharged home from the emergency room and subsequently readmitted because his EKG apparently had shown atrial fibrillation. Patient states that he had a stress test performed in cardiology's office and number of years ago, had an episode of atrial f ibrillation at that time but subsequent to that has not had any atrial fibrillation as far as he knows. Dr. Snowden has done a Holter monitor on him as well. EKG on presentation here showed atrial fibrillation with a rapid ventricular response. Chest x-ray performed on April 08 did not reveal any acute pulmonary disease. The CAT scan was performed on March 08 and showed a moderate pericardial effusion. Blood pressure this morning 104/60 with a heart rate in the 90s, 93% on room air. White blood cell count 17.5, hemoglobin 13.4, platelet count 331. Sodium 136, potassium 5.0, BUN 22 and creatinine 1.1, magnesium 2.2. Troponins negative 3. TSH level I.04. Influenza A and B were negative. Patient continues to be in atrial fibrillation this morning, currently on IV Cardizem and IV heparin drips. Past Medical History Past Medical History: Atrial Fibrillation, COPD, GERD/Reflux History of Any Multi-Drug Resistant Organisms: None Reported Past Surgical History: Orthopedic Surgery Additional Past Surgical History / Comment(s): rt arm Past Anesthesia/Blood Transfusion Reactions: No Reported Reaction Smoking Status: Former smoker - Past Family History Father Family Medical History: Cancer, Myocardial Infarction ([place]) Medications and Allergies Home Medications Medication Instructions Recorded Confirmed Type Aspirin EC [Ecotrin] 325 mg PO DAILY 11/25/18 04/09/19 History Omeprazole [PriLOSEC] 20 mg PO DAILY PRN 11/25/18 04/09/19 History Albuterol Inhaler [Ventolin Hfa 2 puff INHALATION RT-Q6H PRN 04/09/19 04/09/19 History Inhaler] Ascorbic Acid [Vitamin C] 500 mg PO DAILY 04/09/19 04/09/19 History Azithromycin [Zithromax Z-pack] See Taper PO DIRECTED 04/09/19 04/09/19 History Beclomethasone Dip 80 Mcg/Puff 2 puff INHALATION RT-BID 04/09/19 04/09/19 History [Qvar] Multivitamins, Thera [Multivitamin 1 tab PO DAILY 04/09/19 04/09/19 History (formulary)] [place]-3 Fatty Acids/Fish Oil [Fish 1 cap PO DAILY 04/09/19 04/09/19 History Oil 1,000 mg Softgel] Umeclidinium Brm/Vilanterol Tr 1 puff INHALATION RT-DAILY 04/09/19 04/09/19 History [Anoro Ellipta 62.5-25 Mcg INH] Allergies Allergy/AdvReac Type Severity Reaction Status Date / Time Penicillins Allergy Anaphylaxis Verified 04/09/19 14:40 Physical Exam Vitals: Vital Signs Temp Pulse Pulse Resp BP BP BP 04/10/19 08:00 94 19 103/56 04/10/19 04:00 98.5 F 125 H 18 92/68 04/10/19 00:00 105 H 18 96/64 04/09/19 20:00 98.4 F 102 H 18 109/72 04/09/19 17:23 98.4 F 107 H 20 119/72 04/09/19 16:30 116 H 15 105/66 04/09/19 16:00 125 H 11 L 119/85 04/09/19 15:30 111 H 25 H 111/79 04/09/19 15:00 97 15 117/74 04/09/19 14:00 134 H 04/09/19 13:16 97.8 F 85 20 122/79 Pulse Ox 04/10/19 08:00 93 L 04/10/19 04:00 93 L 04/10/19 00:00 91 L 04/09/19 20:00 96 04/09/19 17:23 96 04/09/19 16:30 95 04/09/19 16:00 95 04/09/19 15:30 93 L 04/09/19 15:00 94 L 04/09/19 14:00 04/09/19 13:16 99 Intake and Output 04/09/19 04/10/19 04/10/19 22:59 06:59 14:59 Intake Total 495 75.446 697.867 Balance 495 75.446 697.867 Intake: Intake, IV Titration 15 75.446 97.867 Amount Diltiazem 125 mg In 5 Sodium Chloride 0.9% 100 ml @ 5 MG/HR 5 mls/hr IV .Q24H WILLIAM Rx#:[id number] Heparin Sod,Pork in 0.45% 10 75.446 97.867 NaCl 25,000 unit In 0.45 % NaCl 1 250ml.bag @ 11.5 UNITS/KG/HR 10.015 mls/ hr IV .Q24H WILLIAM Rx#: [id number] Oral 480 600 Other: Voiding Method Toilet Toilet # Voids 1 Weight 87.5 kg PHYSICAL EXAMINATION: GENERAL: 64-year-old gentleman in no acute distress at the time of my examination HEENT: Head is atraumatic, normocephalic. Pupils equal, round. Sclera anicteric. Conjunctiva are clear. Mucous membranes of the mouth are moist. Neck is supple. There is no elevated jugular venous pressure. No carotid bruit is heard. HEART EXAMINATION: Heart S1 and S2 irregularly irregular, pericardial rub is heard. CHEST EXAMINATION: Lungs revealed decreased air exchange throughout. ABDOMEN: Soft, nontender. Bowel sounds are heard. No organomegaly noted. EXTREMITIES: 2+ peripheral pulses with no evidence of peripheral edema and no calf tenderness noted. NEUROLOGIC patient is awake, alert and oriented 3 . . Results 04/10/19 05:54 04/09/19 13:50 Cardiac Enzymes 04/09/19 04/09/19 04/09/19 Range/Units 13:50 13:50 21:14 AST 19 (17-59) U/L Troponin I <0.012 <0.012 (0.000-0.034) ng/mL 04/10/19 Range/Units 02:58 AST (17-59) U/L Troponin I <0.012 (0.000-0.034) ng/mL Coagulation 04/09/19 04/09/19 04/10/19 Range/Units 13:50 21:14 05:54 PT 10.8 (9.0-12.0) sec APTT 24.9 28.2 33.7 H (22.0-30.0) sec Lipids 04/10/19 Range/Units 05:54 Triglycerides 61 (<150) mg/dL Cholesterol 155 (<200) mg/dL HDL Cholesterol 52 (40-60) mg/dL CBC 04/09/19 04/10/19 Range/Units 13:50 05:54 WBC 17.5 H (3.8-10.6) k/uL RBC 4.17 L (4.30-5.90) m/uL Hgb 13.4 (13.0-17.5) gm/dL Hct 38.6 L (39.0-53.0) % Plt Count 331 273 (150-450) k/uL Comprehensive Metabolic Panel 04/09/19 Range/Units 13:50 Sodium 136 L (137-145) mmol/L Potassium 5.0 (3.5-5.1) mmol/L Chloride 100 (98-107) mmol/L Carbon Dioxide 26 (22-30) mmol/L BUN 22 H (9-20) mg/dL Creatinine 1.18 (0.66-1.25) mg/dL Glucose 98 (74-99) mg/dL Calcium 9.6 (8.4-10.2) mg/dL AST 19 (17-59) U/L ALT 21 (21-72) U/L Alkaline Phosphatase 80 (38-126) U/L Total Protein 7.4 (6.3-8.2) g/dL Albumin 3.9 (3.5-5.0) g/dL Current Medications Generic Name Dose Route Start Last Admin Trade Name Freq PRN Reason Stop Dose Admin Colchicine 0.6 mg 04/10/19 09:45 04/10/19 10:20 Colcrys PO 0.6 mg BID WILLIAM Administration Diltiazem HCl 125 mg/ Sodium 125 mls @ 5 mls/hr 04/09/19 14:15 04/09/19 14:24 Chloride IV 5 mg/hr .Q24H WILLIAM 5 mls/hr Administration 5 MG/HR Naproxen 250 mg 04/10/19 09:45 04/10/19 10:19 Naprosyn PO 250 mg BID WILLIAM Administration *Pom* Azithromycin 250 each 04/09/19 19:00 04/09/19 19:10 250mg Tablet PO 04/12/19 09:01 250 each DAILY WILLIAM Administration *Pom* Prednisone 20 1 each 04/09/19 19:00 04/09/19 19:10 Mg Tablet PO 04/11/19 09:01 1 each DAILY WILLIAM Administration *Pom* Qvar ( 2 each 04/09/19 20:00 04/10/19 08:49 Beclomethasone) 80 INHALATION 2 each Mcg Inh RT-BID WILLIAM Administration *Pom* Anoro Ellipta 1 each 04/10/19 08:00 04/10/19 08:49 (Umeclidinium- INHALATION 1 each Vilanterol) 62.5mcg/ RT-DAILY WILLIAM Administration 25mcg Sodium Chloride 10 ml 04/09/19 21:00 04/09/19 19:35 Saline Flush IV Not Given BID WILLIAM Intake and Output 04/09/19 04/10/19 04/10/19 22:59 06:59 14:59 Intake Total 495 75.446 697.867 Balance 495 75.446 697.867 Intake: Intake, IV Titration 15 75.446 97.867 Amount Diltiazem 125 mg In 5 Sodium Chloride 0.9% 100 ml @ 5 MG/HR 5 mls/hr IV .Q24H WILLIAM Rx#:[id number] Heparin Sod,Pork in 0.45% 10 75.446 97.867 NaCl 25,000 unit In 0.45 % NaCl 1 250ml.bag @ 11.5 UNITS/KG/HR 10.015 mls/ hr IV .Q24H WILLIAM Rx#: [id number] Oral 480 600 Other: Voiding Method Toilet Toilet # Voids 1 Weight 87.5 kg 04/10/19 05:54 04/09/19 13:50 EKG Interpretations (text) EKG shows atrial fibrillation with a rapid ventricular response. Assessment and Plan Plan: Assessment and plan #1 atrial fibrillation with rapid ventricular response, appears to be of new onset, paroxysmal #2 pericardial effusion, with associated possible viral infection #3 emphysema #4 history of nicotine dependence Plan We will obtain an echocardiogram with Doppler study. Discontinue IV heparin and start the patient on colchicine along with naproxen. Repeat PA and lateral chest x-ray today, consult Dr. Simon. Continue IV Cardizem at this time. Further recommendations to follow. DNP note has been reviewed, I agree with a documented findings and plan of care. Patient was seen and examined.
[2019-04-10] MEDS: PREDNISONE 20 MG PO SCH (12:41)
[2019-04-10] MEDS: AZITHROMYCIN 250 MG PO SCH (12:41)
[2019-04-10] MEDS: DILTIAZEM 125 MG in SODIUM CHLORIDE 0.9% 100 ML IV SCH (13:39)
--- NOTE | 2019-04-10 14:24 | ECHOF ---
Referral Reason:Pericardial effusion, A. fib with RVR MEASUREMENTS -------- HEIGHT: 182.9 cm WEIGHT: 87.1 kg BP: 111/79 RVIDd: 4.3 cm (< 3.3) IVSd: 1.5 cm (0.6 - 1.1) LVIDd: 3.9 cm (3.9 - 5.3) LVPWd: 1.3 cm (0.6 - 1.1) IVSs: 2.2 cm LVIDs: 3.0 cm LVPWs: 2.1 cm LAESV Index (A-L): 28.04 ml/m Ao Diam: 3.3 cm (2.0 - 3.7) AV Cusp: 1.7 cm (1.5 - 2.6) LA Diam: 4.5 cm (2.7 - 3.8) RAP: 5.00 mmHg RVSP: 19.39 mmHg FINDINGS -------- Atrial fibrillation with RVR. This was a technically adequate study. The left ventricular size is normal. There is moderate concentric left ventricular hypertrophy. T here is mild global hypokinesis of LV . Overall left ventricular systolic function is mildly impair ed with, an EF between 45 - 50 %. The right ventricle is severely enlarged. Normal LA size by volume 22+/-6 ml/m2. RA appears enlarged. Interatrial and interventricular septum intact. The aortic valve was not well visualized. There is no evidence of aortic regurgitation. There is no evidence of aortic stenosis. There is trace mitral regurgitation. Mild tricuspid regurgitation present. There is no evidence of pulmonary hypertension. The right v entricular systolic pressure, as measured by Doppler, is 19.39mmHg. There is no pulmonic regurgitation present. The aortic root size is normal. The inferior vena cava is mildly dilated. There is a small, generalized pericardial effusion present. CONCLUSIONS -------- 1. Atrial fibrillation with VR. 2. This was a technically adequate study. 3. The left ventricular size is normal. 4. There is moderate concentric left ventricular hypertrophy. 5. Overall left ventricular systolic function is mildly impaired with, an EF between 45 - 50 %. 6. The right ventricle is severely enlarged. 7. Normal LA size by volume 22+/-6 ml/m2. 8. RA appears enlarged. 9. Interatrial and interventricular septum intact. 10. The aortic valve was not well visualized. 11. There is no evidence of aortic regurgitation. 12. There is no evidence of aortic stenosis. 13. There is trace mitral regurgitation. 14. Mild tricuspid regurgitation present. 15. There is no evidence of pulmonary hypertension. 16. The right ventricular systolic pressure, as measured by Doppler, is 19.39mmHg. 17. There is no pulmonic regurgitation present. 18. The aortic root size is normal. 19. The inferior vena cava is mildly dilated. 20. There is a small, generalized pericardial effusion present. STAFFING CONSULTANT: Steffi Connor RDCS
[2019-04-10] MEDS ORDERED: IPRATROPIUM-ALBUTEROL 3 ML NEB INHALATION PRN (15:10)
--- NOTE | 2019-04-10 15:12 | P.CNPUL ---
History of Present Illness Consult date: 04/10/19 Requesting physician: Shauna Duke Reason for consult: dyspnea Chief complaint: Dyspnea, A. fib RVR History of present illness: This is a 64-year-old white male patient of Dr. Padilla with past medical history of advanced COPD/emphysema, with a baseline FEV1 of 34% of predicted, former smoker, carries [id number]-pyil smoking history, currently in remission since May 2018, GERD/reflux, paroxysmal atrial fibrillation, and history of right apical pulmonary nodules that were being followed on outpatient basis, patient recently had follow-up CT chest on 03/08/2019 which showed resolution of the previously noted pulmonary nodules, and only 1.2 cm lymph node in the pretracheal space. There was incidental finding of small to moderate size pericardial effusion. An patient most recently have been receiving treatments with steroids and antibiotics from his primary care physician for tr acheobronchitis. Patient was sent to the emergency room for a follow-up chest x-ray and EKG and was found to have A. fib with rapid ventricular response. Chest x-ray did not show any acute pulmonary process. Labs showed leukocytosis, with white blood cell, 17.5, hemoglobin of 13.4, platelet count was 331, serum sodium was 136, potassium is 5.0, B1 is 22 and creatinine is 1.1, troponins were negative 3, TSH level was 1.04, influenza screen was negative, patient is currently on IV heparin and IV Cardizem drips. Afebrile, no worsening dyspnea, room air pulse ox is 94%, blood pressures 111/68. 2-D echocardiogram is pending. Review of Systems All systems: negative Constitutional: Denies chills, Denies fever Eyes: denies blurred vision, denies pain Ears, nose, mouth and throat: Denies headache, Denies sore throat Cardiovascular: Reports irregular heart beat, Denies chest pain, Denies shortness of breath Respiratory: Reports cough Gastrointestinal: Denies abdominal pain, Denies diarrhea, Denies nausea, Denies vomiting Musculoskeletal: Denies myalgias Integumentary: Denies pruritus, Denies rash Neurological: Denies numbness, Denies weakness Psychiatric: Denies anxiety, Denies depression Endocrine: Denies fatigue, Denies weight change Past Medical History Past Medical History: Atrial Fibrillation, COPD, GERD/Reflux History of Any Multi-Drug Resistant Organisms: None Reported Past Surgical History: Orthopedic Surgery Additional Past Surgical History / Comment(s): rt arm Past Anesthesia/Blood Transfusion Reactions: No Reported Reaction Smoking Status: Former smoker - Past Family History Father Family Medical History: Cancer, Myocardial Infarction ([place]) Medications and Allergies Home Medications Medication Instructions Recorded Confirmed Type Aspirin EC [Ecotrin] 325 mg PO DAILY 11/25/18 04/09/19 History Omeprazole [PriLOSEC] 20 mg PO DAILY PRN 11/25/18 04/09/19 History Albuterol Inhaler [Ventolin Hfa 2 puff INHALATION RT-Q6H PRN 04/09/19 04/09/19 History Inhaler] Ascorbic Acid [Vitamin C] 500 mg PO DAILY 04/09/19 04/09/19 History Azithromycin [Zithromax Z-pack] See Taper PO DIRECTED 04/09/19 04/09/19 History Beclomethasone Dip 80 Mcg/Puff 2 puff INHALATION RT-BID 04/09/19 04/09/19 History [Qvar] Multivitamins, Thera [Multivitamin 1 tab PO DAILY 04/09/19 04/09/19 History (formulary)] [place]-3 Fatty Acids/Fish Oil [Fish 1 cap PO DAILY 04/09/19 04/09/19 History Oil 1,000 mg Softgel] Umeclidinium Brm/Vilanterol Tr 1 puff INHALATION RT-DAILY 04/09/19 04/09/19 History [Anoro Ellipta 62.5-25 Mcg INH] Allergies Allergy/AdvReac Type Severity Reaction Status Date / Time Penicillins Allergy Anaphylaxis Verified 04/09/19 14:40 Physical Exam Vitals: Vital Signs Temp Pulse Pulse Resp BP BP BP 04/10/19 12:00 100 18 111/68 04/10/19 08:00 94 19 103/56 04/10/19 04:00 98.5 F 125 H 18 92/68 04/10/19 00:00 105 H 18 96/64 04/09/19 20:00 98.4 F 102 H 18 109/72 04/09/19 17:23 98.4 F 107 H 20 119/72 04/09/19 16:30 116 H 15 105/66 04/09/19 16:00 125 H 11 L 119/85 04/09/19 15:30 111 H 25 H 111/79 04/09/19 15:00 97 15 117/74 04/09/19 14:00 134 H Pulse Ox 04/10/19 12:00 94 L 04/10/19 08:00 93 L 04/10/19 04:00 93 L 04/10/19 00:00 91 L 04/09/19 20:00 96 04/09/19 17:23 96 04/09/19 16:30 95 04/09/19 16:00 95 04/09/19 15:30 93 L 04/09/19 15:00 94 L 04/09/19 14:00 Intake and Output 04/09/19 04/10/19 04/10/19 22:59 06:59 14:59 Intake Total 495 75.446 1054.117 Balance 495 75.446 1054.117 Intake: Intake, IV Titration 15 75.446 214.117 Amount Diltiazem 125 mg In 5 116.25 Sodium Chloride 0.9% 100 ml @ 5 MG/HR 5 mls/hr IV .Q24H WILLIAM Rx#:[id number] Heparin Sod,Pork in 0.45% 10 75.446 97.867 NaCl 25,000 unit In 0.45 % NaCl 1 250ml.bag @ 11.5 UNITS/KG/HR 10.015 mls/ hr IV .Q24H WILLIAM Rx#: [id number] Oral 480 840 Other: Voiding Method Toilet Toilet # Voids 1 1 Weight 87.5 kg GENERAL EXAM: Alert, pleasant, 64-year-old white male on room air, with a pulse ox of 94%, comfortable in no apparent distress. HEAD: Normocephalic/atraumatic. EYES: Normal reaction of pupils, equal size. Conjunctiva pink, sclera white. NOSE: Clear with pink turbinates. THROAT: No erythema or exudates. NECK: No masses, no JVD, no thyroid enlargement, no adenopathy. CHEST: No chest wall deformity. Symmetrical expansion. LUNGS: Diminished air entry with no crackles, wheeze, rhonchi or dullness. CVS: Irregular rate and rhythm, normal S1 and S2, no gallops, no murmurs, no rubs ABDOMEN: Soft, nontender. No hepatosplenomegaly, normal bowel sounds, no guarding or rigidity. EXTREMITIES: No clubbing, no edema, no cyanosis, 2+ pulses and upper and lower extremities. MUSCULOSKELETAL: Muscle strength and tone normal. SPINE: No scoliosis or deformity SKIN: No rashes CENTRAL NERVOUS SYSTEM: Alert and oriented -3. No focal deficits, tone is normal in all 4 extremities. PSYCHIATRIC: Alert and oriented -3. Appropriate affect. Intact judgment and insight. Results - Laboratory Findings CBC and BMP: 04/10/19 05:54 04/09/19 13:50 PT/INR, D-dimer PT 10.8 sec (9.0-12.0) 04/09/19 13:50 INR 1.0 (<1.2) 04/09/19 13:50 Abnormal lab findings: Abnormal Labs 04/09/19 04/09/19 04/10/19 13:50 13:50 05:54 WBC 17.5 H RBC 4.17 L Hct 38.6 L Neutrophils # 13.2 H Monocytes # 1.6 H APTT 33.7 H Sodium 136 L BUN 22 H - Diagnostic Findings Chest x-ray: report reviewed, image reviewed Additional studies: Echocardiogram reviewed, EKG reviewed Assessment and Plan Plan: Assessment: #1. A. fib with RVR, #2. Previous episode of A. fib during a stress test #3. Small pericardial effusion is seen on the echocardiogram #4. Mildly impaired LV function with an EF of 45-50% #5. Recent episode of tracheobronchitis, treated with steroids and antibiotics, chest x-ray did not show any acute pulmonary process #6. Advanced COPD/emphysema, stage III, with FEV1 of 36% of predicted #7. Former smoker, carries a [id number] smoking history, in remission since May 2018 #8. GERD/reflux #9. Previous history of pulmonary nodules in the right apical area, with recent follow-up CT showing evidence of resolution, and only 1.2 cm pretracheal nodule Plan: Continue current medical treatment, patient's inhalers and breathing treatments have been reordered, he is on Cardizem drip for rate control, he is on heparin infusion, no acute distress, no fever chills, no complaints of chest pain, no significant cough or congestion, or wheezing, he is on room air, will finish patient's course of Zithromax, and oral prednisone. Chest x-ray showed no acute process. Continue to follow I performed a history & physical examination of the patient and discussed their management with my nurse practitioner, Irlanda Martinez. I reviewed the nurse practitioner's note and agree with the documented findings and plan of care. Lung sounds are positive for diminished breath sounds. The findings and the impression was discussed with the patient. I attest to the documentation by the nurse practitioner. Time with Patient: Greater than 30
[2019-04-10] MEDS ORDERED: AZITHROMYCIN 500 MG TAB PO SCH (15:15)
[2019-04-10] MEDS ORDERED: predniSONE 20 MG TAB PO SCH (15:15)
--- NOTE | 2019-04-10 15:31 | XR ---
EXAMINATION TYPE: XR chest 2V DATE OF EXAM: 04/10/2019 COMPARISON: Chest x-ray April 08, 2019. CT chest March 08, 2019. HISTORY: Shortness of breath TECHNIQUE: Frontal and lateral views of the chest are obtained. FINDINGS: There is chronic parenchymal change with new focal left basilar opacity. No pleural effus ion or pneumothorax seen bilaterally. The cardiac silhouette size remains enlarged. The osseous str uctures are intact. IMPRESSION: Cardiomegaly and chronic parenchymal changes with no focal left basilar acute infiltrate and/or atelectasis.
--- NOTE | 2019-04-10 15:48 | P.HPIM ---
History of Present Illness H&P Date: 04/10/19 Chief Complaint: afib This is a 64-year-old white male 1 of the practice. He has significant emphysema with an FEV1 of 34%. He been seen pulmonology for pulmonary nodules. He had a repeat CT chest on March 08 which showed resolution of these nodules but a present 1.2cm lymph node. There is also note of small to moderate pericardial effusion. Patient did then followed up with us in our office and seen by nurse practitioner, she had dyspnea for tracheobronchitis and cough. She reviewed the CT report with the patient. She was found to be in tachycardia with a regular rate and rhythm. She is scheduled for EKG at the hospital and was concerned about atrial fibrillation and the pericardial effusion. He was sent to the emergency room found to be in atrial fibrillation, new onset. Today he is on a Cardizem drip started by the emergency room. He is feeling better. He denies any chest pains pressures, has chronic mild shortness of breath, no nausea or vomiting. Review of Systems All systems: negative Past Medical History Past Medical History: Atrial Fibrillation, COPD, GERD/Reflux History of Any Multi-Drug Resistant Organisms: None Reported Past Surgical History: Orthopedic Surgery Additional Past Surgical History / Comment(s): rt arm Past Anesthesia/Blood Transfusion Reactions: No Reported Reaction Smoking Status: Former smoker - Past Family History Father Family Medical History: Cancer, Myocardial Infarction ([place]) Medications and Allergies Home Medications Medication Instructions Recorded Confirmed Type Aspirin EC [Ecotrin] 325 mg PO DAILY 11/25/18 04/09/19 History Omeprazole [PriLOSEC] 20 mg PO DAILY PRN 11/25/18 04/09/19 History Albuterol Inhaler [Ventolin Hfa 2 puff INHALATION RT-Q6H PRN 04/09/19 04/09/19 History Inhaler] Ascorbic Acid [Vitamin C] 500 mg PO DAILY 04/09/19 04/09/19 History Azithromycin [Zithromax Z-pack] See Taper PO DIRECTED 04/09/19 04/09/19 History Beclomethasone Dip 80 Mcg/Puff 2 puff INHALATION RT-BID 04/09/19 04/09/19 History [Qvar] Multivitamins, Thera [Multivitamin 1 tab PO DAILY 04/09/19 04/09/19 History (formulary)] [place]-3 Fatty Acids/Fish Oil [Fish 1 cap PO DAILY 04/09/19 04/09/19 History Oil 1,000 mg Softgel] Umeclidinium Brm/Vilanterol Tr 1 puff INHALATION RT-DAILY 04/09/19 04/09/19 History [Anoro Ellipta 62.5-25 Mcg INH] Allergies Allergy/AdvReac Type Severity Reaction Status Date / Time Penicillins Allergy Anaphylaxis Verified 04/09/19 14:40 Physical Exam Vitals: Vital Signs Temp Pulse Pulse Resp BP BP BP 04/10/19 12:00 100 18 111/68 04/10/19 08:00 94 19 103/56 04/10/19 04:00 98.5 F 125 H 18 92/68 04/10/19 00:00 105 H 18 96/64 04/09/19 20:00 98.4 F 102 H 18 109/72 04/09/19 17:23 98.4 F 107 H 20 119/72 04/09/19 16:30 116 H 15 105/66 04/09/19 16:00 125 H 11 L 119/85 Pulse Ox 04/10/19 12:00 94 L 04/10/19 08:00 93 L 04/10/19 04:00 93 L 04/10/19 00:00 91 L 04/09/19 20:00 96 04/09/19 17:23 96 04/09/19 16:30 95 04/09/19 16:00 95 Intake and Output 04/10/19 04/10/19 04/10/19 06:59 14:59 22:59 Intake Total 75.446 1054.117 Balance 75.446 1054.117 Intake: Intake, IV Titration 75.446 214.117 Amount Diltiazem 125 mg In 116.25 Sodium Chloride 0.9% 100 ml @ 5 MG/HR 5 mls/hr IV .Q24H [facility] Rx#:[id number] Heparin Sod,Pork in 0.45% 75.446 97.867 NaCl 25,000 unit In 0.45 % NaCl 1 250ml.bag @ 11.5 UNITS/KG/HR 10.015 mls/ hr IV .Q24H [facility] Rx#: [id number] Oral 840 Other: Voiding Method Toilet # Voids 1 1 Weight 87.5 kg GENERAL: Well-appearing, well-nourished and in no acute distress. HEAD: Atraumatic, normocephalic. EYES: Pupils equal round and reactive to light, extraocular movements intact, sclera anicteric, conjunctiva are normal. ENT:nares patent, oropharynx clear without exudates. Moist mucous membranes. NECK: Normal range of motion, supple without lymphadenopathy or JVD, no thyromegaly LUNGS: Breath sounds coarse to auscultation bilaterally and equal. No wheezes rales or rhonchi. HEART: tachy rate and irregular rhythm without murmurs, rubs or gallops.S1S2 Normal ABDOMEN: Soft, nontender, normoactive bowel sounds. No guarding, no rebound. No masses appreciated. EXTREMITIES: Normal range of motion, no pitting or edema. No clubbing or cyanosis. NEUROLOGICAL: Cranial nerves II through XII grossly intact. Normal speech, nor mal gait. PSYCH: Normal mood, normal affect. Results CBC & Chem 7: 04/10/19 05:54 04/09/19 13:50 Labs: Abnormal Lab Results - Last 24 Hours (Table) 04/10/19 Range/Units 05:54 APTT 33.7 H (22.0-30.0) sec Chest x-ray: report reviewed Thrombosis Risk Factor Assmnt - DVT/VTE Prophylaxis DVT/VTE Prophylaxis: Low risk, early ambulation encouraged - Choose All That Apply Each Risk Factor Represents 2 Points: Age 61-74 years Thrombosis Risk Factor Assessment Total Risk Factor Score: 2 Thrombosis Risk Factor Assessment Level: Low Risk Assessment and Plan (1) Systolic congestive heart failure Current Visit: Yes Status: Acute Code(s): I50.20 - UNSPECIFIED SYSTOLIC (CONGESTIVE) HEART FAILURE SNOMED Code(s): 69008769 (2) COPD exacerbation Current Visit: Yes Status: Acute Code(s): J44.1 - CHRONIC OBSTRUCTIVE PULMONARY DISEASE W (ACUTE) EXACERBATION SNOMED Code(s): 887197971 (3) Cough Current Visit: Yes Status: Acute Code(s): R05 - COUGH SNOMED Code(s): 92108215 (4) Atrial fibrillation with RVR Current Visit: Yes Status: Acute Code(s): I48.91 - UNSPECIFIED ATRIAL FIBRILLATION SNOMED Code(s): 786202798138966 (5) Pericardial effusion Current Visit: Yes Status: Acute Code(s): I31.3 - PERICARDIAL EFFUSION (NONINFLAMMATORY) SNOMED Code(s): 122376374 Plan: 2D echo has been resulted and showed decreased ejection fraction of 45 to 50%. Cardiology and pulmonology consultation to be obtained. He will continue on azithromycin. Repeat labs in a.m. He will be evaluated next 24 hours. Restart his inhalers from home.
[2019-04-10] MEDS ORDERED: LOSARTAN 25 MG TAB PO SCH (21:00)
[2019-04-10] MEDS ORDERED: PREDNISONE 20 MG PO SCH (21:00)
[2019-04-10] MEDS ORDERED: AZITHROMYCIN 250 MG PO SCH (21:00)
[2019-04-11 06:37] LABS: Mean Platelet Volume 7.1; Platelet Count 315 k/uL (150-450)
[2019-04-11 07:43] VITALS: TEMP 97.6
[2019-04-11] MEDS: ANORO ELLIPTA INHALATION SCH (07:50)
[2019-04-11] MEDS: QVAR 80 MCG INHALATION SCH (07:50)
[2019-04-11] MEDS: NAPROXEN 250 MG TAB PO SCH (08:08)
[2019-04-11] MEDS: COLCHICINE 0.6 MG EACH PO SCH (08:08)
[2019-04-11 08:10] VITALS: RESP 16
[2019-04-11 09:20] LABS: African American GFR (CKD) >90 (>60 ml/min/1.73 sqM); Anion Gap 9 mmol/L; Blood Urea Nitrogen 16 mg/dL (9-20); Calcium 8.9 mg/dL (8.4-10.2); Carbon Dioxide 24 mmol/L (22-30); Chloride 103 mmol/L (98-107); Glucose 168 mg/dL (74-99); Potassium 4.9 mmol/L (3.5-5.1); Sodium 136 mmol/L (137-145)
[2019-04-11 09:32] LABS: Basophils # (A) 0.2 k/uL (0-0.2); Basophils % (A) 1 %; Eosinophils % (A) 0 %; HCT 37.8 % (39.0-53.0); HGB 11.9 gm/dL (13.0-17.5); Lymphocytes % (A) 7 %; MCH 31.4 pg (25.0-35.0); MCHC 31.5 g/dL (31.0-37.0); Mean Platelet Volume 7.5; Monocytes # (A) 1.1 k/uL (0-1.0); Monocytes % (A) 8 %; Neutrophils # (A) 10.5 k/uL (1.3-7.7); Neutrophils % (A) 82 %; Platelet Count 324 k/uL (150-450); RBC 3.79 m/uL (4.30-5.90); RDW 12.8 % (11.5-15.5); WBC 12.8 k/uL (3.8-10.6)
[2019-04-11 09:36] LABS: MCV 99.7 fL (80.0-100.0)
--- NOTE | 2019-04-11 11:12 | P.DS ---
Providers Date of admission: 04/09/19 15:33 Expected date of discharge: 04/11/19 Attending physician: Dennis Padilla Consults: 04/09/19 15:33 Consult Physician Urgent Consulting Provider: Jacky Teran Consult Reason/Comments: A. fib with RVR, pericardial effusion Do you want consulting provider notified?: Yes 04/10/19 11:22 Consult Physician Routine Consulting Provider: Lupe Chan Consult Reason/Comments: sob Do you want consulting provider notified?: Yes Primary care physician: Dennis Padilla - Discharge Diagnosis(es) (1) Systolic congestive heart failure Current Visit: Yes Status: Acute (2) COPD exacerbation Current Visit: Yes Status: Acute (3) Cough Current Visit: Yes Status: Acute (4) Atrial fibrillation with RVR Current Visit: Yes Status: Acute (5) Pericardial effusion Current Visit: Yes Status: Acute Hospital Course: This is a 64-year-old white male 1 of the practice. He has significant emphysema with an FEV1 of 34%. He been seen pulmonology for pulmonary nodules. He had a repeat CT chest on March 08 which showed resolution of these nodules but a present 1.2cm lymph node. There is also note of small to moderate pericardial effusion. Patient did then followed up with us in our office and seen by nurse practitioner, she had dyspnea for tracheobronchitis and cough. She reviewed the CT report with the patient. She was found to be in tachycardia with a regular rate and rhythm. She is scheduled for EKG at the hospital and was concerned about atrial fibrillation and the pericardial effusion. He was sent to the emergency room found to be in atrial fibrillation, new onset. Today he is on a Cardizem drip started by the emergency room. He is feeling better. He denies any chest pains pressures, has chronic mild shortness of breath, no nausea or vomiting. 04/11/2019: 2-D echo shows a small pericardial effusion. His heart rate got under control with the diltiazem drip was later discontinued and started on losartan. He is to remain on his antibiotic azithromycin finished a course of colchicine and naproxen for the pericardial effusion probably viral in nature, per cardiology. He is doing well requesting discharge home. Follow-up in the office in the next week to follow up with cardiology in 1 week Plan - Discharge Summary New Discharge Prescriptions: New Colchicine [Colcrys] 0.6 mg PO BID #60 each Losartan [Cozaar] 12.5 mg PO HS 30 Days #15 tab Naproxen [Naprosyn] 250 mg PO BID 15 Days #30 tab Continue Omeprazole [PriLOSEC] 20 mg PO DAILY PRN PRN Reason: Heartburn Aspirin EC [Ecotrin] 325 mg PO DAILY Multivitamins, Thera [Multivitamin (formulary)] 1 tab PO DAILY Ascorbic Acid [Vitamin C] 500 mg PO DAILY Umeclidinium Brm/Vilanterol Tr [Anoro Ellipta 62.5-25 Mcg INH] 1 puff INHALATION RT-DAILY Beclomethasone Dip 80 Mcg/Puff [Qvar 80 mcg] 2 puff INHALATION RT-BID Azithromycin [Zithromax Z-pack] See Taper PO DIRECTED Albuterol Inhaler [Ventolin Hfa Inhaler] 2 puff INHALATION RT-Q6H PRN PRN Reason: Shortness Of Breath [place]-3 Fatty Acids/Fish Oil [Fish Oil 1,000 mg Softgel] 1 cap PO DAILY Discharge Medication List Aspirin EC [Ecotrin] 325 mg PO DAILY 11/25/18 [History] Omeprazole [PriLOSEC] 20 mg PO DAILY PRN 11/25/18 [History] Albuterol Inhaler [Ventolin Hfa Inhaler] 2 puff INHALATION RT-Q6H PRN 04/09/19 [History] Ascorbic Acid [Vitamin C] 500 mg PO DAILY 04/09/19 [History] Azithromycin [Zithromax Z-pack] See Taper PO DIRECTED 04/09/19 [History] Beclomethasone Dip 80 Mcg/Puff [Qvar 80 mcg] 2 puff INHALATION RT-BID 04/09/19 [History] Multivitamins, Thera [Multivitamin (formulary)] 1 tab PO DAILY 04/09/19 [History] [place]-3 Fatty Acids/Fish Oil [Fish Oil 1,000 mg Softgel] 1 cap PO DAILY 04/09/19 [History] Umeclidinium Brm/Vilanterol Tr [Anoro Ellipta 62.5-25 Mcg INH] 1 puff INHALATION RT-DAILY 04/09/19 [History] Colchicine [Colcrys] 0.6 mg PO BID #60 each 04/11/19 [Rx] Losartan [Cozaar] 12.5 mg PO HS 30 Days #15 tab 04/11/19 [Rx] Naproxen [Naprosyn] 250 mg PO BID 15 Days #30 tab 04/11/19 [Rx] Follow up Appointment(s)/Referral(s): Mehran Miles DO [Doctor of Osteopathic Medicine] - 05/01/19 1:15 pm (Monday) Dennis Padilla MD [Primary Care Provider] - 04/16/19 9:00 am (Monday) Ervin Snowden MD [STAFF PHYSICIAN] - 04/18/19 11:00 am () Patient Instructions/Handouts: A-fib (Atrial Fibrillation) (DC), Pericardial Effusion (DC) Discharge Disposition: HOME SELF-CARE
[2019-04-11 11:18] VITALS: BP 109/67; PULSE 95
[2019-04-11] MEDS ORDERED: ASPIRIN 325 MG TAB PO SCH (12:30)
[2019-04-11] MEDS ORDERED: METOPROLOL TARTRATE 50 MG TAB PO SCH (12:30)
--- NOTE | 2019-04-11 12:35 | P.PN ---
Subjective Progress Note Date: 04/11/19 Principal diagnosis: Dyspnea, A. fib RVR This is a 64-year-old white male patient of Dr. Padilla with past medical history of advanced COPD/emphysema, with a baseline FEV1 of 34% of predicted, former smoker, carries [id number] smoking history, currently in remission since May 2018, GERD/reflux, paroxysmal atrial fibrillation, and history of right apical pulmonary nodules that were being followed on outpatient basis, patient recently had follow-up CT chest on 03/08/2019 which showed resolution of the previously noted pulmonary nodules, and only 1.2 cm lymph node in the pretracheal space. There was incidental finding of small to moderate size pericardial effusion. An patient most recently have been receiving treatments with steroids and antibiotics from his primary care physician for tracheobronchitis. Patient was sent to the emergency room for a follow-up chest x-ray and EKG and was found to have A. fib with rapid ventricular response. Chest x-ray did not show any acute pulmonary process. Labs showed leukocytosis, with white blood cell, 17.5, hemoglobin of 13.4, platelet count was 331, serum sodium was 136, potassium is 5.0, B1 is 22 and creatinine is 1.1, troponins were negative 3, TSH level was 1.04, influenza screen was negative, patient is currently on IV heparin and IV Cardizem drips. Afebrile, no worsening dyspnea, room air pulse ox is 94%, blood pressures 111/68. 2-D echocardiogram is pending. On 04/11/2017 patient seen in follow-up on selective care unit. Remains in A. fib and his rate is 105-128, remains on Cardizem drip at 5 mg per hour, and metoprolol at 50 mg twice a day. Table, denies any cough or congestion, lung sounds reveal basilar rales at posterior lower lobes. Patient is on oral Zithromax, and oral prednisone, room air pulse ox 94%. Denies chest pain. Objective - Vital Signs Vital signs: Vital Signs Temp 97.6 F 04/11/19 11:17 Pulse 95 04/11/19 11:17 Resp 16 04/11/19 11:17 BP 109/67 04/11/19 11:17 Pulse Ox 94 L 04/11/19 11:17 Intake & Output 04/10/19 04/11/1919 18:59 06:59 18:59 Intake Total 1294.117 44.208 240 Balance 1294.117 44.208 240 Weight 87.5 kg Intake: Intake, IV Titration 214.117 44.208 Amount Diltiazem 125 mg In 116.25 44.208 Sodium Chloride 0.9% 100 ml @ 5 MG/HR 5 mls/hr IV .Q24H WILLIAM Rx#:[id number] Heparin Sod,Pork in 0.45% 97.867 NaCl 25,000 unit In 0.45 % NaCl 1 250ml.bag @ 11.5 UNITS/KG/HR 10.015 mls/ hr IV .Q24H WILLIAM Rx#: [id number] Oral 1080 240 Other: Voiding Method Toilet Toilet # Voids 1 1 1 - Exam GENERAL EXAM: Alert, pleasant, 64-year-old white male on room air, with a pulse ox of 94%, comfortable in no apparent distress. HEAD: Normocephalic/atraumatic. EYES: Normal reaction of pupils, equal size. Conjunctiva pink, sclera white. NOSE: Clear with pink turbinates. THROAT: No erythema or exudates. NECK: No masses, no JVD, no thyroid enlargement, no adenopathy. CHEST: No chest wall deformity. Symmetrical expansion. LUNGS: Diminished air entry with no crackles, wheeze, rhonchi or dullness. CVS: Irregular rate and rhythm, normal S1 and S2, no gallops, no murmurs, no rubs ABDOMEN: Soft, nontender. No hepatosplenomegaly, normal bowel sounds, no guarding or rigidity. EXTREMITIES: No clubbing, no edema, no cyanosis, 2+ pulses and upper and lower extremities. MUSCULOSKELETAL: Muscle strength and tone normal. SPINE: No scoliosis or deformity SKIN: No rashes CENTRAL NERVOUS SYSTEM: Alert and oriented -3. No focal deficits, tone is normal in all 4 extremities. PSYCHIATRIC: Alert and oriented -3. Appropriate affect. Intact judgment and insight - Labs CBC & Chem 7: 04/11/19 06:17 04/11/19 06:17 Labs: Abnormal Lab Results - Last 24 Hours (Table) 04/11/19 04/11/19 Range/Units 06:17 06:17 WBC 12.8 H (3.8-10.6) k/uL RBC 3.79 L (4.30-5.90) m/uL Hgb 11.9 L (13.0-17.5) gm/dL Hct 37.8 L (39.0-53.0) % Neutrophils # 10.5 H (1.3-7.7) k/uL Monocytes # 1.1 H (0-1.0) k/uL Sodium 136 L (137-145) mmol/L Glucose 168 H (74-99) mg/dL Assessment and Plan Plan: Assessment: #1. A. fib with RVR #2. Previous episode of A. fib during a stress test #3. Small pericardial effusion is seen on the echocardiogram #4. Mildly impaired LV function with an EF of 45-50% #5. Recent episode of tracheobronchitis, treated with steroids and antibiotics, chest x-ray did not show any acute pulmonary process #6. Advanced COPD/emphysema, stage III, with FEV1 of 36% of predicted #7. Former smoker, carries a [id number] smoking history, in remission since May 2018 #8. GERD/reflux #9. Previous history of pulmonary nodules in the right apical area, with recent follow-up CT showing evidence of resolution, and only 1.2 cm pretracheal nodule Plan: Continue with Zithromax and prednisone to finish the course, breathing is stable, no acute events overnight, and cardiology following, patient remains on Cardizem drip for rate control. Patient could be discharged home once his A. fib rate is better controlled, and we will defer to cardiology for that I performed a history & physical examination of the patient and discussed their management with my nurse practitioner, Irlanda Martinez. I reviewed the nurse practitioner's note and agree with the documented findings and plan of care. Lung sounds are positive for diminished breath sounds. The findings and the impression was discussed with the patient. I attest to the documentation by the nurse practitioner. Time with Patient: Less than 30
--- NOTE | 2019-04-11 14:25 | CDI ---
Documentation Clarification Form Date: 04/11/2019 2:06:40 PM From: Hyacinth Ontiveros RN CCDS Admit Date: 04/09/2019 3:33:00 PM Patient Name: Lionel Villar Visit Number: [id number] Discharge Date: ATTENTION: The Clinical Documentation Specialists (CDI) and [facility] Coding Staff appreciate your assistance in clarifying documentation. Please respond to the clarification below the line at the bottom and electronically sign. The CDI & [facility] Coding staff will review the response and follow-up if needed. Please note: Queries are made part of the Legal Health Record. If you have any questions, please contact the author of this message via ITS. Dr. Dennis Padilla Systolic congestive heart failure is documented in the H & P 04/10/2019. History/Risk Factors: 64-year-old male was sent to the ED by PCP for concern of Atrial fibrillation and pericardial effusion. Medical history Emphysema Clinical Indicators: Diagnosed new onset Atrial fibrillation VS/Pulse OX: 122/79 85 97.8 20 99% ra Echocardiogram Results: 04/09/2019 Left ventricular systolic function is mildly impaired with, an EF between 45-50% . The right ventricle is severely enlarged. RA appears enlarged Chest X Ray: 04/10/2019 Cardiomegaly and chronic parenchymal changes with no focal left basilar acute infiltrate and/or atelectasis Treatment: started on 04/10/2019 Cozaar 12.5mg po HS; started on 04/11/19 Lopressor 50mg po BID In your professional opinion, can you please clarify the acuity of CHF if known? * ----> Acute Systolic CHF * Chronic Systolic CHF * Acute on Chronic * Unable to Determine * Other, please specify (Last Revision: October 2017) MTDD
--- NOTE | 2019-04-11 14:51 | P.PN ---
Subjective Progress Note Date: 04/11/19 This is a pleasant 64-year-old male patient with history of emphysema, prior history of smoking, who had an outpatient CAT scan performed to evaluate pulmonary nodule, and severity of his emphysema, he was noted on the CAT scan to have a pericardial effusion. Subsequently he did see his family care doctor in the office, who gave him a steroid injection and started him on antibiotics because of a suspected bronchitis. He was sent back to the emergency room to undergo a chest x-ray as well as EKG, he was discharged home from the emergency room and subsequently readmitted because his EKG apparently had shown atrial fibrillation. Patient states that he had a stress test performed in [facility]'s office and number of years ago, had an episode of atrial fibrillation at that time but subsequent to that has not had any atrial fibrillation as far as he knows. Dr. Snowden has done a Holter monitor on him as well. EKG on presentation here showed atrial fibrillation with a rapid ventricular response. Chest x-ray performed on April 08 did not reveal any acute pulmonary disease. The CAT scan was performed on March 08 and showed a moderate pericardial effusion. Blood pressure this morning 104/60 with a heart rate in the 90s, 93% on room air. White blood cell count 17.5, hemoglobin 13.4, platelet count 331. Sodium 136, potassium 5.0, BUN 22 and creatinine 1.1, magnesium 2.2. Troponins negative 3. TSH level I.04. Influenza A and B were negative. Patient continues to be in atrial fibrillation this morning, currently on IV Cardizem and IV heparin drips. 04/11/2019 Patient seen and examined this morning, continues to be in atrial fibrillation, heart rate in the 90s. We will discontinue the IV Cardizem and start the patient on Lopressor 50 mg one tablet by mouth twice a day, continue with full aspirin only, Naprosyn colchicine. Follow-up with Dr. Giselle Villarreal in 2 weeks, we'll get liver function tests in 10 days. Objective - Vital Signs Vital signs: Vital Signs Temp 97.6 F 04/11/19 11:17 Pulse 95 04/11/19 11:17 Resp 16 04/11/19 11:17 BP 109/67 04/11/19 11:17 Pulse Ox 94 L 04/11/19 11:17 Intake & Output 04/10/19 04/11/19 04/11/19 18:59 06:59 18:59 Intake Total 1294.117 44.208 480 Balance 1294.117 44.208 480 Weight 87.5 kg Intake: Intake, IV Titration 214.117 44.208 Amount Diltiazem 125 mg In 116.25 44.208 Sodium Chloride 0.9% 100 ml @ 5 MG/HR 5 mls/hr IV .Q24H WILLIAM Rx#:[id number] Heparin Sod,Pork in 0.45% 97.867 NaCl 25,000 unit In 0.45 % NaCl 1 250ml.bag @ 11.5 UNITS/KG/HR 10.015 mls/ hr IV .Q24H WILLIAM Rx#: [id number] Oral 1080 480 Other: Voiding Method Toilet Toilet # Voids 1 1 1 - Exam HEAD: Normocephalic/atraumatic. EYES: Normal reaction of pupils, equal size. Conjunctiva pink, sclera white. NOSE: Clear with pink turbinates. THROAT: No erythema or exudates. NECK: No masses, no JVD, no thyroid enlargement, no adenopathy. CHEST: No chest wall deformity. Symmetrical expansion. LUNGS: Diminished air entry with no crackles, wheeze, rhonchi or dullness. CVS: Irregular rate and rhythm, normal S1 and S2, no gallops, no murmurs, no rubs ABDOMEN: Soft, nontender. No hepatosplenomegaly, normal bowel sounds, no guarding or rigidity. EXTREMITIES: No clubbing, no edema, no cyanosis, 2+ pulses and upper and lower extremities. MUSCULOSKELETAL: Muscle strength and tone normal. SPINE: No scoliosis or deformity SKIN: No rashes CENTRAL NERVOUS SYSTEM: Alert and oriented -3. No focal deficits, tone is normal in all 4 extremities. PSYCHIATRIC: Alert and oriented -3. Appropriate affect. Intact judgment and insight - Labs CBC & Chem 7: 04/11/19 06:17 04/11/19 06:17 Labs: Abnormal Lab Results - Last 24 Hours (Table) 04/11/19 04/11/19 Range/Units 06:17 06:17 WBC 12.8 H (3.8-10.6) k/uL RBC 3.79 L (4.30-5.90) m/uL Hgb 11.9 L (13.0-17.5) gm/dL Hct 37.8 L (39.0-53.0) % Neutrophils # 10.5 H (1.3-7.7) k/uL Monocytes # 1.1 H (0-1.0) k/uL Sodium 136 L (137-145) mmol/L Glucose 168 H (74-99) mg/dL Assessment and Plan Plan: Assessment and plan #1 atrial fibrillation with rapid ventricular response, appears to be of new onset, paroxysmal #2 pericardial effusion, with associated possible viral infection #3 emphysema #4 history of nicotine dependence Plan Echo cardiac gram with Doppler study revealed a ejection fraction of 45-50%. We will discontinue the IV Cardizem and discharge the patient home today on Lopressor 50 mg one tablet by mouth twice a day his chadsvasc score is 1, we will discharge the patient home on a full aspirin, continue cold she seen for 2 weeks Naprosyn for 10 days, AST ALT CBC in 10 days. DNP note has been reviewed, I agree with a documented findings and plan of care. Patient was seen and examined.
== END 2019-04-11 15:20 | disposition home or self-care (01) | DRG 308 ==
LOC: EC 13:10 → 3SCARD 15:33
PROVIDERS: ADMIT Family Medicine; ATTEND Family Medicine
DX: I48.0 Paroxysmal atrial fibrillation (principal); I50.21 Acute systolic (congestive) heart failure; I31.3 Pericardial effusion (noninflammatory); J44.1 Chronic obstructive pulmonary disease with (acute) exacerbation; K21.9 Gastro-esophageal reflux disease without esophagitis; Z79.82 Long term (current) use of aspirin; Z82.49 Family history of ischemic heart disease and other diseases of the circulatory system; Z87.891 Personal history of nicotine dependence; Z80.9 Family history of malignant neoplasm, unspecified; Z79.899 Other long term (current) drug therapy; Z88.0 Allergy status to penicillin; Z98.890 Other specified postprocedural states
CPT/HCPCS: 36415; 71046; 80048; 80053; 80061; 83735; 84439; 84443; 84481; 84484; 85025; 85049; 85610; 85652; 85730; 93005; 93306; 94640; 96365; 96366; 96368; 96376; 99291

== ENCOUNTER 2019-05-30 11:00 | Day surgery (SDC) | payer BC ==
[2019-05-28 15:47] VITALS: BMI 27.1
[~2019-05-30 11:00] MED LIST changes: +DEXAMETHASONE SOD PHOSPHATE 10 MG/ML 1 ML VIAL IV ONE; +LACTATED RINGERS 1,000 ML IV SCH; +LIDOCAINE 1% 20 ML VIAL (10MG/ML) FOR IV START INTRADERMA PRN; -REGADENOSON 0.4 MG/5 ML SYRINGE IV ONE; +SODIUM CHLORIDE 0.9% 1,000 ML IV SCH
[2019-05-30 11:26] VITALS: TEMP 97.8
[2019-05-30 11:53] LABS: African American GFR (CKD) >90 (>60 ml/min/1.73 sqM); Anion Gap 8 mmol/L; Blood Urea Nitrogen 23 mg/dL (9-20); Calcium 9.4 mg/dL (8.4-10.2); Carbon Dioxide 24 mmol/L (22-30); Chloride 106 mmol/L (98-107); Glucose 98 mg/dL (74-99); Non-African American GFR(CKD) 83 (>60 ml/min/1.73 sqM); Potassium 5.3 mmol/L (3.5-5.1); Sodium 138 mmol/L (137-145)
[2019-05-30] MEDS ORDERED: LIDOCAINE 1% INJ 10MG/ML (20 ML MDV) ONE (11:54)
[2019-05-30] MEDS ORDERED: BENZOCAINE SPRAY 1 CAN MUCOUS MEM ONE ×2 (11:54→11:59)
[2019-05-30] MEDS ORDERED: PROPOFOL 10 MG/ML 20 ML VIAL IV ONE (11:54)
--- NOTE | 2019-05-30 12:37 | ECHOT ---
TRANSESOPHAGEAL ECHOCARDIOGRAM INDICATION: Persistent atrial fibrillation. This is a 64-year-old gentleman with persistent atrial fibrillation who did not convert to sinus rhythm in spite of being on flecainide and was advised to undergo PRATIK, cardioversion. He had been explained of risks, benefits and alternatives is adequately anticoagulated with Eliquis. PROCEDURE NOTE: After obtaining informed consent, transesophageal echocardiogram is performed in left lateral position using an Omniplane probe. Local and IV sedation were obtained by the injection molding machine operator. The patient tolerated the procedure well without any obvious immediate complications. FINDINGS: 1. There is no intracardiac thrombus within the left atrial appendage, left atrium, left ventricle, right atrium, or right ventricle. 2. Left ventricle has normal size and systolic function with an ejection fraction of 60%. 3. Left atrium has normal size. 4. Right atrium appears enlarged. 5. Right ventricle appears enlarged. 6. Mitral valve is anatomically normal. There is trace mitral regurgitation noted. 7. Aortic valve is a 3-leaflet valve. There is no evidence of aortic stenosis or regurgitation. 8. Tricuspid valve shows mild tricuspid regurgitation. 9. Interatrial Septum: There is no evidence of [id number] shunt by color-flow Doppler or eqixr-hs-veur shunt by agitated saline contrast study. 10.Aorta shows mild atherosclerotic changes. CONCLUSIONS: 1. No intracardiac thrombus. 2. Normal LV function. 3. Enlarged right atrium and right ventricle. PLAN: Patient will undergo cardioversion. MMODL / IJN: [id number] /
[2019-05-30 12:40] VITALS: RESP 16
--- NOTE | 2019-05-30 12:49 | CE ---
CARDIAC ELECTROPHYSIOLOGY REPORT CARDIOVERSION REPORT: INDICATION: Persistent atrial fibrillation. PROCEDURE NOTE: After obtaining informed consent and making sure that patient does not have any intracardiac thrombus with transesophageal echo and with adequate anticoagulation with Eliquis, the patient underwent electrical cardioversion. He received one shock with 200 joules of synchronized DC current following which he converted to sinus rhythm. The patient is on flecainide, which he is going to continue, along with the Eliquis. He will follow up with me in the office in a week's time. MMGTL / IJN: [id number] /
--- NOTE | 2019-05-30 12:49 | LTR ---
May 30, 2019 Re: Lionel Villar Dear Dennis: I performed PRATIK, cardioversion on Lionel Villar for persistent atrial fibrillation. He converted to sinus rhythm successfully and will remain on Eliquis and flecainide for the next several weeks. Thank you for giving me the privilege to participate in the care of this pleasant gentleman. Sincerely, MD KANDICE White / EMIL: [id number] /
[2019-05-30 14:08] VITALS: BP 98/55; PULSE 62
== END 2019-05-30 14:17 | disposition home or self-care (01) ==
LOC: CATHCVL 11:00
PROVIDERS: ATTEND Internal Medicine Cardiovascular Disease
DX: I48.19 Other persistent atrial fibrillation (principal); I07.1 Rheumatic tricuspid insufficiency; I70.0 Atherosclerosis of aorta; K21.9 Gastro-esophageal reflux disease without esophagitis; Z87.891 Personal history of nicotine dependence; Z79.899 Other long term (current) drug therapy; Z79.82 Long term (current) use of aspirin; Z79.01 Long term (current) use of anticoagulants; Z79.51 Long term (current) use of inhaled steroids; Z88.0 Allergy status to penicillin
CPT/HCPCS: 93312; 93320; 93325; 92960; 80048; J2001; J2704

== ENCOUNTER → 2019-08-02 | Outpatient (CLI) | payer BC ==
--- NOTE | 2019-08-06 23:52 | SLS ---
SLEEP STUDY HOME SLEEP STUDY: DATE OF SERVICE: 08/02/2019 This patient has COPD, severe, along with history of chronic atrial fibrillation, acid reflux and history of pulmonary nodules. The patient was also suspected to have obstructive sleep apnea. The patient had typical signs and features of obstructive sleep apnea, as the patient reported loud snoring, disrupted sleep, witnessed apneas as noted by his . He has been having also excessive daytime sleepiness. PERTINENT PHYSICAL FINDINGS: Height 72 inches. Weight is 204, BMI 28.1. TECHNICAL DESCRIPTION: The Nox-T3 system was used to complete this home sleep study. Total recording duration was 7 hours and 59 minutes. Bedtime started at 10 p.m., ended at 5:59 a.m., and the total time in bed was 7 hours and 52 minutes. There was adequate flow and oxygen saturation monitoring in this study. RESPIRATORY EVENTS: Respiratory count showed a total of 98 obstructive apneas, 29 mixed/central apneas, and 103 obstructive hypopneas. The resulting apnea-hypopnea index was 29.2, consistent with moderately severe obstructive sleep apnea. OXYGENATION ANALYSIS: The patient had a total of 124 oxygen desaturations where the pulse ox dropped by more than 4%. Minimum pulse ox was 83%. The patient spent approximately 15% of sleep time with a pulse ox of less than 90%. CARDIAC SUMMARY: Average heart rate was 77, minimum heart rate 37, maximum heart rate 121. IMPRESSION: 1. Moderately severe obstructive sleep apnea, apnea/hypopnea index of 29. 2. Nocturnal oxygen desaturation secondary to obstructive sleep apnea. 3. Chronic hypersomnia. 4. Loud snoring. 5. History of atrial fibrillation. 6. Chronic obstructive pulmonary disease. 7. Acid reflux. 8. History of pulmonary nodules. PLAN: Proceed with in-lab CPAP titration regarding moderately severe obstructive sleep apnea. Further recommendations are to follow accordingly. MMODL / IJN: [id number] /
== END | disposition home or self-care (01) ==
LOC: SLEEP 10:11
PROVIDERS: ATTEND Internal Medicine Critical Care Medicine
DX: G47.33 Obstructive sleep apnea (adult) (pediatric) (principal); G47.19 Other hypersomnia; J44.9 Chronic obstructive pulmonary disease, unspecified; K21.9 Gastro-esophageal reflux disease without esophagitis; Z86.79 Personal history of other diseases of the circulatory system; Z87.09 Personal history of other diseases of the respiratory system

== ENCOUNTER → 2019-12-04 | Outpatient (CLI) | payer BC ==
[2019-12-04 10:50] LABS: HCT 41.1 % (39.0-53.0); HGB 13.2 gm/dL (13.0-17.5); MCH 32.3 pg (25.0-35.0); MCHC 32.2 g/dL (31.0-37.0); MCV 100.3 fL (80.0-100.0); Mean Platelet Volume 8.3; Platelet Count 243 k/uL (150-450); RBC 4.09 m/uL (4.30-5.90); WBC 12.7 k/uL (3.8-10.6)
[2019-12-04 16:13] LABS: African American GFR (CKD) 74.7 (60.0-200.0); Anion Gap 7.1 mmol/L (4.00-12.00); Carbon Dioxide 28.9 mmol/L (21.6-31.8); Non-African American GFR(CKD) 64.4 (60.0-200.0); Potassium 4.7 mmol/L (3.5-5.5)
== END | disposition home or self-care (01) ==
LOC: LABWHC1 09:19
PROVIDERS: ATTEND Internal Medicine Cardiovascular Disease
DX: U07.1 COVID-19 (principal)
CPT/HCPCS: 80051; 82565; 82947; 84520; 85027; 36415; U0003

== ENCOUNTER 2019-12-10 10:52 | Day surgery (SDC) | payer BC ==
[2019-12-06 13:53] VITALS: BMI 28.3
[~2019-12-10 10:52] MED LIST changes: -DEXAMETHASONE SOD PHOSPHATE 10 MG/ML 1 ML VIAL IV ONE; +LIDOCAINE 1% (10MG/ML) FOR IV START INTRADERMA PRN; -LIDOCAINE 1% 20 ML VIAL (10MG/ML) FOR IV START INTRADERMA PRN
[2019-12-10] MEDS ORDERED: SODIUM CHLORIDE 0.9% 500 ML 500 ML IV ONE (11:40)
[2019-12-10] MEDS ORDERED: PROPOFOL 10 MG/ML 20 ML VIAL IV ONE (11:54)
[2019-12-10] MEDS ORDERED: SODIUM CHLORIDE 0.9% 1,000 ML IV SCH (12:30)
[2019-12-10 12:39] VITALS: TEMP 97.3
--- NOTE | 2019-12-10 12:47 | ECHOT ---
TRANSESOPHAGEAL ECHOCARDIOGRAM INDICATION: Persistent atrial fibrillation. PROCEDURE NOTE: After obtaining informed consent, transesophageal echocardiogram is performed in left lateral position using an Omni plane probe. Local and IV sedation obtained by the manager completions. Patient tolerated the procedure well without any obvious immediate complications. FINDINGS: 1. There is no intracardiac thrombus within the left atrial appendage, left atrium, right atrium, right ventricle. 2. Left atrium is normal size. 3. Right atrium appears enlarged. 4. Right ventricle has normal size and function. 5. Left ventricle has normal size and function. 6. Mitral valve shows mild mitral regurgitation. 7. Tricuspid valve shows trace tricuspid regurgitation. 8. Aortic valve is a 3-leaflet valve. Aorta shows mild atherosclerotic changes. 9. Interatrial septum, there is no evidence of [id number] shunt by color-flow Doppler or [id number]-zu-[id number] shunt by agitated saline contrast study. CONCLUSION: This transesophageal echo shows normal LV systolic function. No evidence of intracardiac thrombus. CARDIOVERSION NOTE: INDICATION: Persistent atrial fibrillation. After obtaining informed consent and making sure that the patient is adequately anticoagulated. This is a normal anticoagulant. The patient underwent cardioversion initially we attempted with 200 joules. He did not convert, following which he received 360 joules of DC current with which he converted to sinus rhythm and stayed in sinus rhythm. Patient will be discharged home and will follow up in a week's time. MMODL / IJN: [id number] /
[2019-12-10 17:12] VITALS: BP 103/60; PULSE 61; RESP 16
--- NOTE | 2019-12-12 11:36 | CDI ---
Date: 12.12.19 CDS/Labour Market Economist Name: Tara Young Phone: If any questions, call Mendy Woodward Pick Up Operator at [phone] Patient Name: Lionel Villar Admit Date: 12.10.19 Discharge Date: 12.10.19 ATTENTION: The [facility] Coding Staff appreciate your assistance in clarifying documentation. Please respond to the clarification below the line at the bottom and electronically sign. The [facility] Coding staff will review the response and follow-up if needed. Please note: Queries are made part of the Legal Health Record. If you have any questions, please contact the Pick Up Operator. Dear Dr. Snowden Please document the description of the PRATIK. Thank you for your kind consideration. MTDD
== END 2019-12-10 14:45 | disposition home or self-care (01) ==
LOC: CATHCVL 10:52
PROVIDERS: ATTEND Internal Medicine Cardiovascular Disease
DX: I48.19 Other persistent atrial fibrillation (principal); I34.0 Nonrheumatic mitral (valve) insufficiency; I70.0 Atherosclerosis of aorta; I11.0 Hypertensive heart disease with heart failure; I50.9 Heart failure, unspecified; E78.5 Hyperlipidemia, unspecified; J44.9 Chronic obstructive pulmonary disease, unspecified; K21.9 Gastro-esophageal reflux disease without esophagitis; Z88.0 Allergy status to penicillin; Z79.01 Long term (current) use of anticoagulants; Z79.899 Other long term (current) drug therapy; Z79.51 Long term (current) use of inhaled steroids; Z87.891 Personal history of nicotine dependence
CPT/HCPCS: 93312; 93325; 92960; J2704; 93320

== ENCOUNTER 2020-01-30 10:09 | Day surgery (SDC) | payer BC ==
[2020-01-29 08:34] VITALS: BMI 28.3
[2020-01-30] MEDS: SODIUM CHLORIDE 0.9% 1,000 ML IV SCH (10:45)
[2020-01-30 10:57] LABS: Basophils # (A) 0.1 k/uL (0-0.2); Basophils % (A) 0 %; Eosinophils # (A) 0.2 k/uL (0-0.7); Eosinophils % (A) 2 %; HGB 14.4 gm/dL (13.0-17.5); Lymphocytes # (A) 2.2 k/uL (1.0-4.8); Lymphocytes % (A) 22 %; MCHC 32.8 g/dL (31.0-37.0); MCV 100.6 fL (80.0-100.0); Mean Platelet Volume 7.8; Monocytes % (A) 10 %; Neutrophils # (A) 6.5 k/uL (1.3-7.7); Neutrophils % (A) 65 %; Platelet Count 224 k/uL (150-450); RBC 4.37 m/uL (4.30-5.90); RDW 12.9 % (11.5-15.5); WBC 10.1 k/uL (3.8-10.6)
[2020-01-30 11:05] LABS: African American GFR (CKD) >90 (>60 ml/min/1.73 sqM); Anion Gap 7 mmol/L; Blood Urea Nitrogen 18 mg/dL (9-20); Calcium 9.1 mg/dL (8.4-10.2); Carbon Dioxide 25 mmol/L (22-30); Chloride 104 mmol/L (98-107); Glucose 97 mg/dL (74-99); Non-African American GFR(CKD) 80 (>60 ml/min/1.73 sqM); Potassium 4.6 mmol/L (3.5-5.1); Sodium 136 mmol/L (137-145)
[2020-01-30] MEDS ORDERED: LIDOCAINE 1% INJ 10MG/ML (20 ML MDV) ONE ×2 (11:40→12:39)
[2020-01-30] MEDS ORDERED: HEPARIN SODIUM,PORCINE 10,000 UNIT/ML 1 ML VIAL ONE (12:39)
[2020-01-30] MEDS ORDERED: MIDAZOLAM 2 MG/2 ML VIAL ONE (12:39)
[2020-01-30] MEDS ORDERED: PROTAMINE SULFATE 10 MG/ML 5 ML VIAL IV ONE (12:39)
[2020-01-30] MEDS ORDERED: SUCCINYLCHOLINE CHLORIDE VIAL 200 MG/10 ML VIAL IV ONE (12:39)
[2020-01-30] MEDS ORDERED: fentaNYL (PF) 50 MCG/ML 2 ML AMP ONE (12:39)
[2020-01-30] MEDS ORDERED: PHENYLEPHRINE-0.9% NACL SYG 1 MG/10 ML SYRINGE ONE (12:39)
[2020-01-30] MEDS ORDERED: PROPOFOL 10 MG/ML 20 ML VIAL IV ONE (12:39)
[2020-01-30] MEDS ORDERED: FUROSEMIDE 10 MG/ML 2 ML VIAL ONE (12:39)
[2020-01-30] MEDS ORDERED: LIDOCAINE 1% INJ 10MG/ML (20 ML MDV) SQ ONE (13:22)
[2020-01-30] MEDS ORDERED: HEPARIN SOD,PORK IN 0.45% NACL 25,000 UNIT in 0.45% NACL 1 250ML.BAG IV ONE (13:24)
[2020-01-30] MEDS ORDERED: LACTATED RINGERS 1,000 ML IV ONE (14:41)
[2020-01-30] MEDS ORDERED: HEPARIN SODIUM (1,000 UNIT/ML) 1,000 UNIT in SODIUM CHLORIDE 0.9% 1,000 ML IRRIGATION ONE (15:02)
[2020-01-30] MEDS ORDERED: IOPAMIDOL-370 100ML BTL INJ ONE (15:31)
--- NOTE | 2020-01-30 17:07 | P.HPCAR ---
History of Present Illness This is Dr. Yuen dictating an H/P on this patient The patient was interviewed and examined IMPRESSION / ASSESSMENT: Persistent symptomatically atrial fibrillation for about a year, complaining of shortness of breath with exertion Likely mild pericarditis within the last year in 2019 in April Reduced LV systolic function at that time along with RV enlargement and enlargement of the atria Prior 2-D echo was normal Past history of smoking Obstructive sleep apnea, on CPAP mask Enlarged right atrium and right ventricle Failed amiodarone and electrical cardioversion PLAN: Proceed with A. fib ablation, pulmonary vein isolation and linear ablation left atrium Continue reticulocyte regulation HPI Patient is a shortness of breath tiredness and fatigue for about a year corresponding to the duration of atrial fibrillation ROS: No fever chills or rigors, no cough, phlegm or expectoration, no nausea, vomiting or diarrhea, no hematuria, dysuria, no musculoskeletal complaints, no strokes or seizures, no skin lesions. EXAMINATION: Afebrile 97.9F, blood pressure 109/66 mmHg No JVD Breath sounds are reduced bilaterally but no rhonchi no crackles line irregular rhythm normal heart sounds no murmurs Abdomen soft nontender Extended is warm no edema REVIEW OF LABS, ECG & MEDICAL DATA White count 10.1, hematocrit 44, sodium 136, potassium 4.6, BUN 18 and creatinine 1.0 Physical Exam Vitals: Vital Signs Temp Pulse Resp BP BP Pulse Ox 01/30/20 10:37 97.9 F 86 16 109/66 108/76 95 Intake and Output 01/30/20 01/30/20 01/30/20 06:59 14:59 22:59 Intake Total 993 384 Output Total 500 Balance 993 -116 Intake: IV 993 384 Output: Urine 500 Other: Weight 93.3 kg Past Medical History Past Medical History: Atrial Fibrillation, Cancer, COPD, GERD/Reflux, Sleep Apnea/CPAP/BIPAP Additional Past Medical History / Comment(s): MELANOMA SKIN CANCER, USES C-PAP MACHINE., STAGE [address] Yuen H & P. History of Any Multi-Drug Resistant Organisms: None Reported Past Surgical History: Orthopedic Surgery Additional Past Surgical History / Comment(s): Right arm surgery, colonoscopy., CARDIOVERSION, recent PRATIK Past Anesthesia/Blood Transfusion Reactions: No Reported Reaction Smoking Status: Former smoker - Past Family History Father Family Medical History: Cancer, Myocardial Infarction ([place]) Sister(s) Family Medical History: Cancer Physical Examination Vital Signs Temp Pulse Resp BP BP Pulse Ox 01/30/20 10:37 97.9 F 86 16 109/66 108/76 95 Intake and Output 01/30/20 01/30/20 01/30/20 06:59 14:59 22:59 Intake Total 993 384 Output Total 500 Balance 993 -116 Intake: IV 993 384 Output: Urine 500 Other: Weight 93.3 kg Results 01/30/20 10:50 01/30/20 10:50 CBC 01/30/20 Range/Units 10:50 WBC 10.1 (3.8-10.6) k/uL RBC 4.37 (4.30-5.90) m/uL Hgb 14.4 (13.0-17.5) gm/dL Hct 44.0 (39.0-53.0) % Plt Count 224 (150-450) k/uL Comprehensive Metabolic Panel 01/30/20 Range/Units 10:50 Sodium 136 L (137-145) mmol/L Potassium 4.6 (3.5-5.1) mmol/L Chloride 104 (98-107) mmol/L Carbon Dioxide 25 (22-30) mmol/L BUN 18 (9-20) mg/dL Creatinine 1.00 (0.66-1.25) mg/dL Glucose 97 (74-99) mg/dL Calcium 9.1 (8.4-10.2) mg/dL Current Medications Generic Name Dose Route Start Last Admin Trade Name Freq PRN Reason Stop Dose Admin Lactated Ringer's 1,000 mls @ 20 mls/hr 01/29/20 11:45 Lactated Ringers IV .Q24H WILLIAM Sodium Chloride 1,000 mls @ 50 mls/hr 01/30/20 05:53 01/30/20 10:45 Saline 0.9% IV 950 mls .Q20H WILLIAM Administration Intake and Output 01/30/20 01/30/20 01/30/20 06:59 14:59 22:59 Intake Total 993 384 Output Total 500 Balance 993 -116 Intake: IV 993 384 Output: Urine 500 Other: Weight 93.3 kg Patient Weight 01/31/20 06:59 Weight 93.3 kg 01/30/20 10:50 01/30/20 10:50
--- NOTE | 2020-01-30 17:10 | P.PRLE ---
RE: Lionel Villar Dear Dennis Lionel underwent successful A. fib ablation including pulmonary vein isolation, linear ablation in the left atrial roof with termination of the arrhythmia and linear ablation in the mitral isthmus with termination of the arrhythmia However he does. You to have atrial fibrillation and this appears to be epicardial probably related to a vena [place] epicardial tachycardia I did cardiovert him and we'll continue to follow him and see if he needs any further antiarrhythmic therapies He will continue his anti-coag ablation as before Thank you for entrusting me with the care of the patient Warm regards Sincerely Murali Yuen
--- NOTE | 2020-01-30 17:32 | P.PCN ---
Preoperative Diagnosis: Diagnosis Atrial fibrillation, symptomatic, refractory to therapy Result No left atrial appendage mass seen on intracardiac echo Successful pulmonary vein isolation of all veins using cryo-ablation Complete entrance block in all 4 veins confirmed No evidence for phrenic nerve injury Linear ablation of the left atrial roof for a roof reentry Linear ablation of the mitral isthmus for mitral isthmus reentry Electrical cardioversion for rapid atrial fibrillation in the distal CS poles likely vein a Kelton tachycardia RF ablation, limited lesions, within the Yoni sinus didn't result in prolongation of the cycle length but this was a tortuous coronary sinus and the catheter was either not stable or the contact force would be very high and therefore only a limited number of lesions were given and the catheter was removed from the coronary sinus Esophageal deflection YES Electrical cardioversion with a synchronized shock across the chest YES Procedure details Patient was brought to the EP lab in a fasting state. Written informed consent was obtained prior to the procedure. Procedure performed under general anesthesia After initial muscle relaxant use, muscle relaxants were not given thereafter in order to assess phrenic nerve during procedure. Patient prepped and draped as per protocol Full cryo-set up with standard preparation of the cryoablation tools done. Femoral Venous access obtained on the right and left groins Venous and arterial Sheaths placed. Diagnostic catheters for the high right atrium, phrenic nerve stimulation and pacing, His bundle, RV and coronary sinus placed Intracardiac echo catheter placed. Long sheath placed in the right atrium Left and right transseptal catheterization performed under intracardiac echo guidance. Intravenous heparin with aCT above 300 Later, catheter positioning and balloon positioning in the left atrium, under intracardiac echo guidance Diagnostic EP study with Coronary sinus pacing and recording Baseline measurements Sinus cycle length 1002 ms, RI interval 168 ms QRS 84 ms, QT interval 400 ms Transseptal catheterization performed RA pressure 13/7/10 LA pressure 20/4/11 Transseptal catheterization performed with standard sheath. The cryoablation sheath was then placed with an over the wire exchange without any acute complications. All 4 pulmonary veins were isolated in the following sequence: Left superior followed by left inferior followed by right superior followed by right inferior The cryo-ablation balloon was placed at the os of each vein 1.5 mL of IV dye was injected to confirm an occluded vein Goal during cryoablation was to achieve complete occlusion of the pulmonary vein, achieve -30 degrees C at 30 seconds and achieve -40 degrees C at 60 seconds and a time to effect of less than 60-90 seconds, . If not the balloon was repositioned to obtain this result After completion of Cryoblation with durations from 180-240 seconds, entrance block was confirmed with the Attain circular catheter in a roving fashion around the antrum of the pulmonary veins Phrenic nerve pacing was performed from the SVC, right innominate vein area and diaphragm voltage was monitored. Diaphragmatic contractions were also monitored manually for strength of contraction. Parameter goals for each cryo freeze Complete occlusion of the appropriate vein -30 degrees C by 30 seconds -40 degrees C by 60 seconds Minimum between minus 40-55 degrees C Thaw time greater than 10 seconds Balloon visualized by intracardiac echo The esophagus was intubated. Esophageal Temperature monitoring with a CIRCA catheter formed. Esophageal deflection for hypothermia of the esophagus below 30 degrees C Left superior pulmonary vein Complete isolation, entrance block Left inferior pulmonary vein Complete isolation, entrance block Right superior pulmonary vein, during phrenic nerve pacing Complete isolation, entrance block Right inferior pulmonary vein, during phrenic nerve pacing Complete isolation, entrance block At the end of the procedure the Achieve catheter was once again used to check for entrance block Phrenic nerve stimulation was performed to confirm diaphragmatic stimulation the end of the procedure Cine fluoroscopy was performed at the very end of the procedure to confirm movement of both diaphragms with inspiration and expiration After successful pulmonary vein isolation, the patient went into a macro reentrant atrial tachycardia 3-D electro anatomic activation mapping was performed and this was confirmed to be a roof reentry RF ablation was performed resulting in termination of this tachycardia but appearance of a tachycardia consistent with mitral reentry Repeat 3-D electro anatomic mapping was performed, activation mapping Mitral reentry was confirmed RF ablation was performed in the mitral isthmus with termination mitral reentry but appearance of rapid atrial tachycardia/atrial fibrillation Integrity of the lines was confirmed with repeat electro anatomic mapping/voltage mapping Ablation was performed in the ridge along the left atrial appendage side Then the coronary sinus was accessed with the ablation catheter and limited RF lesions were applied here resulting in lengthening of the tachycardia cycle length but not termination The coronary sinus was quite tortuous and miniplate in the catheter was d ifficult especially reaching the distal coronary sinus Maneuvers to reach the distal Yoni sinus with associated with elevated/high contact force and therefore only limited lesions were applied These lesions didn't result in lengthening of the cycle length, consistent with likely vein a Kelton/epicardial tachycardia Finally electrical cardioversion was performed to sinus rhythm At the end of the procedure the patient was extubated Heparin was reversed Venous sheaths were removed and hemostasis assured Procedures performed (PVI - CRYO Ablation) Diagnostic EP study CS pacing and recording Left and right transseptal catheterization 3D mapping Intracardiac echocardiography Pulmonary vein isolation with transseptal and comprehensive EPS, 61599 Left atrial roof line, +[id number] 4 left atrial roof macro reentry Linear ablation, left atrium, +[id number] 4 mitral isthmus macro reentry Electrical cardioversion with a synchronized shock across the chest [id number]
[2020-01-30] MEDS ORDERED: HYDROmorphone 0.5 MG/0.5 ML SYRINGE IVP ONE (17:42)
[2020-01-30] MEDS ORDERED: ACETAMINOPHEN IV (For NPO) 1,000 MG/100 ML VIAL IVPB ONE (17:52)
[2020-01-30] MEDS ORDERED: ACETAMINOPHEN IV (For NPO) 1,000 MG in EMPTY BAG 1 BAG IVPB ONE (18:00)
[2020-01-30] MEDS ORDERED: ACETAMINOPHEN TAB 325 MG TAB PO PRN (18:13)
[2020-01-30] MEDS ORDERED: PANTOPRAZOLE 40 MG TABLET PO PRN (18:13)
[2020-01-30] MEDS ORDERED: HYDROcodone/APAP 5-325MG 1 EACH TAB PO PRN (18:13)
[2020-01-30] MEDS ORDERED: ATORVASTATIN 20 MG TAB PO SCH (21:00)
[2020-01-30] MEDS ORDERED: DOXAZOSIN 1 MG TAB PO SCH (21:00)
[2020-01-30] MEDS: METOPROLOL TARTRATE 25 MG TAB PO SCH (21:50)
[2020-01-30] MEDS: APIXABAN 5 MG TAB PO SCH (21:51)
[2020-01-30] MEDS: LACTATED RINGERS 1,000 ML IV SCH (23:47)
[2020-01-31] MEDS: LACTATED RINGERS 1,000 ML IV SCH (00:54)
[2020-01-31] MEDS: SODIUM CHLORIDE 0.9% 1,000 ML IV SCH (03:37)
[2020-01-31 08:36] VITALS: BP 114/67; PULSE 74; RESP 16; TEMP 98.2
[2020-01-31] MEDS: APIXABAN 5 MG TAB PO SCH (08:36)
[2020-01-31] MEDS: METOPROLOL TARTRATE 25 MG TAB PO SCH (08:36)
--- NOTE | 2020-01-31 14:05 | P.DS ---
Providers Attending physician: Murali Yuen Primary care physician: [facility] Course: Patient is doing well from a chronic standpoint. He's ablating around his room. He went to the bathroom He has no chest discomfort dizziness lightheadedness or palpitations His groins of healed well no hematoma No JVD line clear lungs no rhonchi no crackles Normal heart sounds normal S1 normal S2 no murmurs Afebrile 98.2F, pulse rate in the 70s, blood pressure 140/67 mmHg Impression persistent atrial fibrillation status post A. 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 Mercado Plan - Discharge Summary Discharge Rx Participant: Yes New Discharge Prescriptions: Continue Omeprazole [PriLOSEC] 20 mg PO DAILY PRN PRN Reason: Heartburn Multivitamins, Thera [Multivitamin (formulary)] 1 tab PO DAILY Umeclidinium Brm/Vilanterol Tr [Anoro Ellipta 62.5-25 Mcg INH] 1 puff INHALATION RT-DAILY Beclomethasone Dip 80 Mcg/Puff [Qvar 80 mcg] 2 puff INHALATION RT-BID Apixaban [Eliquis] 5 mg PO BID Atorvastatin [Lipitor] 20 mg PO HS Metoprolol Tartrate [Lopressor] 25 mg PO BID Doxazosin [Cardura] 1 mg PO HS Ascorbic Acid [Vitamin C] 1,000 mg PO DAILY Discharge Medication List Omeprazole [PriLOSEC] 20 mg PO DAILY PRN 11/25/18 [History] Beclomethasone Dip 80 Mcg/Puff [Qvar 80 mcg] 2 puff INHALATION RT-BID 04/09/19 [History] Multivitamins, Thera [Multivitamin (formulary)] 1 tab PO DAILY 04/09/19 [History] Umeclidinium Brm/Vilanterol Tr [Anoro Ellipta 62.5-25 Mcg INH] 1 puff INHALATION RT-DAILY 04/09/19 [History] Apixaban [Eliquis] 5 mg PO BID 05/28/19 [History] Ascorbic Acid [Vitamin C] 1,000 mg PO DAILY 12/06/19 [History] Atorvastatin [Lipitor] 20 mg PO HS 12/06/19 [History] Doxazosin [Cardura] 1 mg PO HS 12/06/19 [History] Metoprolol Tartrate [Lopressor] 25 mg PO BID 12/06/19 [History] Follow up Appointment(s)/Referral(s): Murali Yuen MD [STAFF PHYSICIAN] - As Needed (Follow-up with Dr. Mercado) Ervin Snowden MD [STAFF PHYSICIAN] - 1 Week Activity/Diet/Wound Care/Special Instructions: Post EP study - Ablation instructions 1. Keep access sites dry for 2 days. 2. No heavy lifting or straining for 2 days. 3. Avoid bending the hips repeatedly for 2 days. 4. You may go up and down stairs slowly Call if the following is noted 1. Bleeding, increasing swelling or pain at the access sites. 2. Increasing chest discomfort, especially upon taking a deep breath. 3. Increasing shortness of breath, at rest or with exertion. 4. Undue cough / phlegm 5. Difficulty or pain while swallowing. 6. Pain or change in color in the extremities. 7. Fever, chills, rigors. 8. Increasing headache or neurologic symptoms. 9. Dizziness, fainting, palpitations Discharge Disposition: HOME SELF-CARE
== END 2020-01-31 15:19 | disposition home or self-care (01) ==
LOC: CATHEP 10:09 → 3NCARDOBS 16:57 → CATHEP 01-31 15:19
PROVIDERS: ATTEND Internal Medicine Clinical Cardiac Electrophysiology
DX: I48.91 Unspecified atrial fibrillation (principal); Z87.891 Personal history of nicotine dependence; G47.33 Obstructive sleep apnea (adult) (pediatric); Z99.89 Dependence on other enabling machines and devices; J44.9 Chronic obstructive pulmonary disease, unspecified; K21.9 Gastro-esophageal reflux disease without esophagitis; Z85.820 Personal history of malignant melanoma of skin; Z98.890 Other specified postprocedural states; Z82.49 Family history of ischemic heart disease and other diseases of the circulatory system; Z80.9 Family history of malignant neoplasm, unspecified; Z79.01 Long term (current) use of anticoagulants; Z79.51 Long term (current) use of inhaled steroids; Z79.899 Other long term (current) drug therapy; Z88.0 Allergy status to penicillin
CPT/HCPCS: 85347; 92960; 93662; 93613; 93656; 93657; 80048; 85025; C1769 ×4; C1894 ×2; C1730 ×2; C1759; C1893; C1733; C1766; C1732; J2250; J0330; J2720; J1644 ×3; J1940; J2001; J3010; J0131; J2370; J2704; J1170; Q9967

== ENCOUNTER 2020-02-05 15:43 | Inpatient (IN) | payer BC ==
--- NOTE | 2020-02-05 16:23 | ED ---
General Adult HPI - General Chief complaint: Arrhythmia/Palpitations Stated complaint: High heart rate Time Seen by Provider: 02/05/20 16:21 Source: patient Mode of arrival: ambulatory Limitations: no limitations - History of Present Illness Initial comments: Patient presents the ED with his for evaluation. Patient states that he has been experiencing rapid heart palpitations since last night. Patient states that he has a history of atrial fibrillation. Patient states that he underwent cardiac ablation about 2 weeks ago. Patient states that he is currently on Eliquis anticoagulation therapy. Patient admits to feeling dyspneic, but he sta carie that he is chronically dyspneic secondary to COPD, and he denies any increase in his dyspnea today. Patient denies having any pain, fever or chills, headache, focal numbness/weakness/neuro deficit, chest pain or pressure, cough or cold symptoms, dizziness, syncope, nausea or vomiting, diarrhea, abdominal pain, bloody or melanotic stool, urinary symptoms, leg or calf swelling or pain, or any other symptoms or complaints. - Related Data Home Medications Medication Instructions Recorded Confirmed Omeprazole [PriLOSEC] 20 mg PO DAILY PRN 11/25/18 02/05/20 Beclomethasone Dip 80 Mcg/Puff 2 puff INHALATION RT-BID 04/09/19 02/05/20 [Qvar 80 mcg] Multivitamins, Thera [Multivitamin 1 tab PO DAILY 04/09/19 02/05/20 (formulary)] Umeclidinium Brm/Vilanterol Tr 1 puff INHALATION RT-DAILY 04/09/19 02/05/20 [Anoro Ellipta 62.5-25 Mcg INH] Apixaban [Eliquis] 5 mg PO BID 05/28/19 02/05/20 Atorvastatin [Lipitor] 20 mg PO HS 12/06/19 02/05/20 Doxazosin [Cardura] 1 mg PO HS 12/06/19 02/05/20 Metoprolol Tartrate [Lopressor] 50 mg PO BID 12/06/19 02/05/20 Allergies Allergy/AdvReac Type Severity Reaction Status Date / Time Penicillins Allergy Anaphylaxis Verified 02/05/20 17:12 Review of Systems ROS Statement: Those systems with pertinent positive or pertinent negative responses have been documented in the HPI. ROS Other: All systems not noted in ROS Statement are negative. Past Medical History Past Medical History: Atrial Fibrillation, Cancer, COPD, GERD/Reflux, Sleep Apnea/CPAP/BIPAP Additional Past Medical History / Comment(s): MELANOMA SKIN CANCER, USES C-PAP MACHINE., STAGE [address] Yuen H & P. History of Any Multi-Drug Resistant Organisms: None Reported Past Surgical History: Ablation, Orthopedic Surgery Additional Past Surgical History / Comment(s): Right arm surgery, colonoscopy., CARDIOVERSION, recent PRATIK Past Anesthesia/Blood Transfusion Reactions: No Reported Reaction Past Psychological History: No Psychological Hx Reported Smoking Status: Former smoker Past Alcohol Use History: Occasional Past Drug Use History: Marijuana - Past Family History Father Family Medical History: Cancer, Myocardial Infarction (SD) Sister(s) Family Medical History: Cancer General Exam Limitations: no limitations General appearance: alert, in no apparent distress Head exam: Present: atraumatic, normocephalic Eye exam: Present: normal appearance, EOMI ENT exam: Present: mucous membranes moist Neck exam: Present: other (Trachea is in midline) Respiratory exam: Present: normal lung sounds bilaterally. Absent: respiratory distress, wheezes, rales, rhonchi Cardiovascular Exam: Present: tachycardia, normal heart sounds, other (Normal radial pulses bilaterally) GI/Abdominal exam: Present: soft. Absent: distended, tenderness, guarding Extremities exam: Present: other (Negative Homans sign bilaterally). Absent: tenderness, pedal edema, calf tenderness Neurological exam: Present: alert, oriented X3. Absent: motor sensory deficit Psychiatric exam: Present: normal affect, normal mood Skin exam: Present: warm, dry, intact, normal color Course Vital Signs 02/05/20 02/05/20 02/05/20 15:50 15:58 16:37 Temperature 98.0 F Pulse Rate 150 H 142 H Pulse Rate [ 144 H [employer] ] Respiratory 20 18 Rate Blood Pressure 90/63 111/77 O2 Sat by Pulse 95 94 L Oximetry 02/05/20 17:17 Temperature Pulse Rate 121 H Pulse Rate [ [employer] ] Respiratory 18 Rate Blood Pressure 113/79 O2 Sat by Pulse 96 Oximetry - Reevaluation(s) Reevaluation #1: 02/05/20 17:34 Patient states that his palpitations have now improved, and he denies development of any new symptoms while in the ED. Patient continues to deny having any chest pain or pressure. Patient remains in atrial flutter on the hall monitor with a heart rate in the low 100s. Patient remains alert and breathing comfortably. Patient and are aware of the patient's test results, and patient agrees with hospital admission at this time. 02/05/20 18:08 Case, H&P, test results and ED management were discussed with Dr. Loza. He accepts hospital admission. He has no further recommendations at this time. EKG Findings - EKG Comments: EKG Findings:: Atrial flutter with 2:1 AV conduction, ventricular rate of 143 bpm, normal QRS duration, normal QT interval, leftward axis, incomplete right bundle branch block, no ST or T-wave abnormality. Repeat EKG was performed at 17:30: Atrial flutter with variable AV block, ventricular rate of 103 bpm, leftward axis, normal QRS duration, normal QT interval, no ST or T-wave abnormality Medical Decision Making - Medical Decision Making Patient reports having rapid heart palpitations since last night. Patient denies having any chest pain or pressure. Patient has been in atrial flutter with RVR while in the ED. Patient's heart rate has now improved to the low 100s. Will start the patient on a diltiazem IV drip. Patient's troponin is elevated, which I suspect is likely secondary to his rapid heart rate. Patient was given a dose of aspirin in the ED. No anticoagulation was given in the ED, as the patient reports being on Eliquis anticoagulation therapy. Dr. Loza has accepted hospital admission. - Lab Data Result diagrams: 02/05/20 16:35 02/05/20 16:35 Lab Results 02/05/20 02/05/20 02/05/20 Range/Units 16:35 16:35 16:35 WBC 12.0 H (3.8-10.6) k/uL RBC 4.21 L (4.30-5.90) m/uL Hgb 13.4 (13.0-17.5) gm/dL Hct 41.3 (39.0-53.0) % MCV 98.3 (80.0-100.0) fL MCH 31.9 (25.0-35.0) pg MCHC 32.4 (31.0-37.0) g/dL RDW 12.4 (11.5-15.5) % Plt Count 250 (150-450) k/uL Neutrophils % 70 % Lymphocytes % 17 % Monocytes % 9 % Eosinophils % 1 % Basophils % 1 % Neutrophils # 8.4 H (1.3-7.7) k/uL Lymphocytes # 2.0 (1.0-4.8) k/uL Monocytes # 1.1 H (0-1.0) k/uL Eosinophils # 0.1 (0-0.7) k/uL Basophils # 0.1 (0-0.2) k/uL PT 11.2 (9.0-12.0) sec INR 1.1 (<1.2) APTT 24.9 (22.0-30.0) sec Sodium 135 L (137-145) mmol/L Potassium 4.9 (3.5-5.1) mmol/L Chloride 104 (98-107) mmol/L Carbon Dioxide 21 L (22-30) mmol/L Anion Gap 10 mmol/L BUN 18 (9-20) mg/dL Creatinine 0.96 (0.66-1.25) mg/dL Est GFR (CKD-EPI)AfAm >90 (>60 ml/min/1.73 sqM) Est GFR (CKD-EPI)NonAf 85 (>60 ml/min/1.73 sqM) Glucose 97 (74-99) mg/dL Calcium 8.9 (8.4-10.2) mg/dL Magnesium 1.8 (1.6-2.3) mg/dL Total Bilirubin 0.7 (0.2-1.3) mg/dL AST 33 (17-59) U/L ALT 28 (4-49) U/L Alkaline Phosphatase 80 (38-126) U/L Troponin I (0.000-0.034) ng/mL Total Protein 7.0 (6.3-8.2) g/dL Albumin 4.0 (3.5-5.0) g/dL TSH 1.480 (0.465-4.680) mIU/L 02/05/20 Range/Units 16:35 WBC (3.8-10.6) k/uL RBC (4.30-5.90) m/uL Hgb (13.0-17.5) gm/dL Hct (39.0-53.0) % MCV (80.0-100.0) fL MCH (25.0-35.0) pg MCHC (31.0-37.0) g/dL RDW (11.5-15.5) % Plt Count (150-450) k/uL Neutrophils % % Lymphocytes % % Monocytes % % Eosinophils % % Basophils % % Neutrophils # (1.3-7.7) k/uL Lymphocytes # (1.0-4.8) k/uL Monocytes # (0-1.0) k/uL Eosinophils # (0-0.7) k/uL Basophils # (0-0.2) k/uL PT (9.0-12.0) sec INR (<1.2) APTT (22.0-30.0) sec Sodium (137-145) mmol/L Potassium (3.5-5.1) mmol/L Chloride (98-107) mmol/L Carbon Dioxide (22-30) mmol/L Anion Gap mmol/L BUN (9-20) mg/dL Creatinine (0.66-1.25) mg/dL Est GFR (CKD-EPI)AfAm (>60 ml/min/1.73 sqM) Est GFR (CKD-EPI)NonAf (>60 ml/min/1.73 sqM) Glucose (74-99) mg/dL Calcium (8.4-10.2) mg/dL Magnesium (1.6-2.3) mg/dL Total Bilirubin (0.2-1.3) mg/dL AST (17-59) U/L ALT (4-49) U/L Alkaline Phosphatase (38-126) U/L Troponin I 0.211 H* (0.000-0.034) ng/mL Total Protein (6.3-8.2) g/dL Albumin (3.5-5.0) g/dL TSH (0.465-4.680) mIU/L - Radiology Data Radiology results: image reviewed (Chest x-ray is negative) Disposition Clinical Impression: Atrial flutter with rapid ventricular response, Elevated troponin Disposition: ADMITTED IP TO THIS [facility] Condition: Stable Is patient prescribed a controlled substance at d/c from ED?: No Referrals: Dennis Padilla MD [Primary Care Provider] - 1-2 days Time of Disposition: 18:09
[2020-02-05] MEDS ORDERED: SODIUM CHLORIDE 0.9% 500 ML 500 ML IV STA (16:28)
[2020-02-05] MEDS ORDERED: DILTIAZEM 5 MG/ML 10 ML VIAL IVP STA (16:29)
[2020-02-05 16:48] LABS: Basophils # (A) 0.1 k/uL (0-0.2); Basophils % (A) 1 %; Eosinophils # (A) 0.1 k/uL (0-0.7); Eosinophils % (A) 1 %; HCT 41.3 % (39.0-53.0); HGB 13.4 gm/dL (13.0-17.5); Lymphocytes % (A) 17 %; MCH 31.9 pg (25.0-35.0); MCHC 32.4 g/dL (31.0-37.0); MCV 98.3 fL (80.0-100.0); Mean Platelet Volume 8.2; Monocytes # (A) 1.1 k/uL (0-1.0); Monocytes % (A) 9 %; Neutrophils # (A) 8.4 k/uL (1.3-7.7); Neutrophils % (A) 70 %; Platelet Count 250 k/uL (150-450); RBC 4.21 m/uL (4.30-5.90); RDW 12.4 % (11.5-15.5)
[2020-02-05 16:56] LABS: INR 1.1 (<1.2); Partial Thromboplastin Time 24.9 sec (22.0-30.0); Prothrombin Time 11.2 sec (9.0-12.0)
[2020-02-05 16:57] LABS: ALT 28 U/L (4-49); AST 33 U/L (17-59); African American GFR (CKD) >90 (>60 ml/min/1.73 sqM); Alkaline Phosphatase 80 U/L (38-126); Anion Gap 10 mmol/L; Blood Urea Nitrogen 18 mg/dL (9-20); Calcium 8.9 mg/dL (8.4-10.2); Carbon Dioxide 21 mmol/L (22-30); Chloride 104 mmol/L (98-107); Glucose 97 mg/dL (74-99); Magnesium 1.8 mg/dL (1.6-2.3); Non-African American GFR(CKD) 85 (>60 ml/min/1.73 sqM); Potassium 4.9 mmol/L (3.5-5.1); Sodium 135 mmol/L (137-145); Total Bilirubin 0.7 mg/dL (0.2-1.3)
--- NOTE | 2020-02-05 17:01 | XR ---
EXAMINATION TYPE: XR chest 2V DATE OF EXAM: 02/05/2020 COMPARISON: Prior chest x-ray 04/10/2019 HISTORY: Dysrhythmia TECHNIQUE: Frontal and lateral views of the chest are obtained. FINDINGS: There is no focal air space opacity, pleural effusion, or pneumothorax seen. The cardiac silhouette size is within normal limits. Prominent lung volumes consistent with emphysema, COPD, int erstitium is increased. Prominence of pulmonary artery could be indicative of pulmonary artery hypert ension. The osseous structures are intact. IMPRESSION: No acute cardiopulmonary process. Additional findings above.
[2020-02-05] MEDS ORDERED: ASPIRIN 325 MG TAB PO STA (17:28)
[2020-02-05] MEDS ORDERED: PANTOPRAZOLE 40 MG TABLET PO PRN (18:11)
[2020-02-05] MEDS: DILTIAZEM 125 MG in SODIUM CHLORIDE 0.9% 100 ML IV SCH (18:39)
[2020-02-05] MEDS: SODIUM CHLORIDE 0.9% 1,000 ML IV SCH (18:41)
[2020-02-05] MEDS: DOXAZOSIN 1 MG TAB PO SCH (20:35)
[2020-02-05] MEDS: METOPROLOL TARTRATE 50 MG TAB PO SCH (20:35)
[2020-02-05] MEDS: ATORVASTATIN 20 MG TAB PO SCH (20:35)
[2020-02-05] MEDS: APIXABAN 5 MG TAB PO SCH (20:35)
[2020-02-06] MEDS: SODIUM CHLORIDE 0.9% 1,000 ML IV SCH ×3 (06:12→16:40)
[2020-02-06 06:35] LABS: Basophils # (A) 0.1 k/uL (0-0.2); Basophils % (A) 1 %; Eosinophils # (A) 0.2 k/uL (0-0.7); Eosinophils % (A) 2 %; HCT 36.4 % (39.0-53.0); HGB 11.7 gm/dL (13.0-17.5); Lymphocytes # (A) 2.2 k/uL (1.0-4.8); Lymphocytes % (A) 21 %; MCH 31.8 pg (25.0-35.0); MCHC 32.2 g/dL (31.0-37.0); MCV 98.9 fL (80.0-100.0); Mean Platelet Volume 7.9; Monocytes % (A) 9 %; Neutrophils # (A) 6.6 k/uL (1.3-7.7); Neutrophils % (A) 64 %; Platelet Count 228 k/uL (150-450); RBC 3.68 m/uL (4.30-5.90); RDW 12.4 % (11.5-15.5); WBC 10.3 k/uL (3.8-10.6)
[2020-02-06 06:47] LABS: ALT 21 U/L (4-49); AST 21 U/L (17-59); African American GFR (CKD) >90 (>60 ml/min/1.73 sqM); Alkaline Phosphatase 65 U/L (38-126); Anion Gap 4 mmol/L; Blood Urea Nitrogen 15 mg/dL (9-20); Calcium 8.2 mg/dL (8.4-10.2); Carbon Dioxide 25 mmol/L (22-30); Chloride 108 mmol/L (98-107); Glucose 93 mg/dL (74-99); Non-African American GFR(CKD) >90 (>60 ml/min/1.73 sqM); Potassium 4.6 mmol/L (3.5-5.1); Sodium 137 mmol/L (137-145); Total Bilirubin 0.5 mg/dL (0.2-1.3); Total Protein 5.6 g/dL (6.3-8.2)
[2020-02-06] MEDS: APIXABAN 5 MG TAB PO SCH ×2 (07:57→19:30)
[2020-02-06] MEDS: METOPROLOL TARTRATE 50 MG TAB PO SCH ×2 (07:57→19:30)
--- NOTE | 2020-02-06 14:20 | P.HPIM ---
History of Present Illness H&P Date: 02/06/20 Chief Complaint: Heart racing This is 64-year-old gentleman with history of advanced emphysema, reported FEV of 34%, chronic A. fib/ flutter, recent successful ablation last , obstructive sleep apnea, wears CPAP, and multiple other medical issues presented to the ER with complaints of heart racing. Denies chest pain. Chest x-ray reporting no acute cardiopulmonary process. EKG reporting atrial flutter with variable AV block, incomplete right bundle branch block, septal and inferior infarct, age undetermined, rapid rate, in the high 140s to 150. Troponin 0.211, 0.213, 0.219. Mildly Hypotensive on admission with systolic 90. Afebrile, elevated WBC 12 on admission, now resolved. Maintaining O2 sats in the low 90s on room air Review of Systems ROS Statement: Those systems with pertinent positive or pertinent negative responses have been documented in the HPI. ROS Other: All systems not noted in ROS Statement are negative. Past Medical History Past Medical History: Atrial Fibrillation, Cancer, COPD, GERD/Reflux, Sleep Apnea/CPAP/BIPAP Additional Past Medical History / Comment(s): MELANOMA SKIN CANCER, USES C-PAP MACHINE., STAGE [address] Yuen H & P. recent ablation with Dr. Yuen 01/30/20 History of Any Multi-Drug Resistant Organisms: None Reported Past Surgical History: Ablation, Orthopedic Surgery Additional Past Surgical History / Comment(s): Right arm surgery, colonoscopy., CARDIOVERSION, recent PRATIK Past Anesthesia/Blood Transfusion Reactions: No Reported Reaction Past Psychological History: No Psychological Hx Reported Smoking Status: Former smoker Past Alcohol Use History: Occasional Additional Past Alcohol Use History / Comment(s): Quit smoking 2017, smoked 44 yrs, 1 PPD. Past Drug Use History: Marijuana Additional Drug Use History / Comment(s): OCCASIONAL MARIJUANA USE - Past Family History Father Family Medical History: Cancer, Myocardial Infarction ([place]) Sister(s) Family Medical History: Cancer Medications and Allergies Home Medications Medication Instructions Recorded Confirmed Type Omeprazole [PriLOSEC] 20 mg PO DAILY PRN 11/25/18 02/05/20 History Beclomethasone Dip 80 Mcg/Puff 2 puff INHALATION RT-BID 04/09/19 02/05/20 History [Qvar 80 mcg] Multivitamins, Thera [Multivitamin 1 tab PO DAILY 04/09/19 02/05/20 History (formulary)] Umeclidinium Brm/Vilanterol Tr 1 puff INHALATION RT-DAILY 04/09/19 02/05/20 History [Anoro Ellipta 62.5-25 Mcg INH] Apixaban [Eliquis] 5 mg PO BID 05/28/19 02/05/20 History Atorvastatin [Lipitor] 20 mg PO HS 12/06/19 02/05/20 History Doxazosin [Cardura] 1 mg PO HS 12/06/19 02/05/20 History Metoprolol Tartrate [Lopressor] 50 mg PO BID 12/06/19 02/05/20 History Allergies Allergy/AdvReac Type Severity Reaction Status Date / Time Penicillins Allergy Anaphylaxis Verified 02/05/20 17:12 Physical Exam Vitals: Vital Signs Temp Pulse Pulse Resp BP BP Pulse Ox 02/06/20 08:00 98.1 F 69 18 116/66 97 02/06/20 03:49 97.6 F 68 18 90/59 96 02/05/20 23:47 109 H 18 02/05/20 23:44 97.5 F L 109 H 18 95/57 96 02/05/20 20:25 97.6 F 100 16 112/70 97 02/05/20 20:00 100 16 02/05/20 18:57 18 02/05/20 17:17 121 H 18 113/79 96 02/05/20 16:37 142 H 18 111/77 94 L 02/05/20 15:58 144 H 02/05/20 15:50 98.0 F 150 H 20 90/63 95 Intake and Output 02/05/20 02/06/20 02/06/20 22:59 06:59 14:59 Other: Voiding Method Toilet Toilet Toilet # Voids 1 Weight 92.986 kg 92.5 kg GENERAL: Well-appearing, well-nourished and in no acute distress. Sitting up at bedside. HEAD: Atraumatic, normocephalic. EYES: Pupils equal round and reactive to light, extraocular movements intact, sclera anicteric, conjunctiva are normal. ENT:nares patent, oropharynx clear without exudates. Moist mucous membranes. NECK: Normal range of motion, supple without lymphadenopathy or JVD, no thyromegaly LUNGS: Breath sounds clear to auscultation bilaterally and equal. No wheezes rales or rhonchi. HEART: irregular rhythm without murmurs, rubs or gallops.S1S2 Normal ABDOMEN: Soft, nontender, normoactive bowel sounds. No guarding, no rebound. No masses appreciated. EXTREMITIES: Normal range of motion, no pitting or edema. No clubbing or cyanosis. NEUROLOGICAL: Cranial nerves II through XII grossly intact. Normal speech, normal gait. PSYCH: Normal mood, normal affect. Results CBC & Chem 7: 02/06/20 06:19 02/06/20 06:19 Labs: Abnormal Lab Results - Last 24 Hours (Table) 02/05/20 02/05/20 02/05/20 Range/Units 16:35 16:35 16:35 WBC 12.0 H (3.8-10.6) k/uL RBC 4.21 L (4.30-5.90) m/uL Hgb (13.0-17.5) gm/dL Hct (39.0-53.0) % Neutrophils # 8.4 H (1.3-7.7) k/uL Monocytes # 1.1 H (0-1.0) k/uL Sodium 135 L (137-145) mmol/L Chloride (98-107) mmol/L Carbon Dioxide 21 L (22-30) mmol/L Calcium (8.4-10.2) mg/dL Troponin I 0.211 H* (0.000-0.034) ng/mL Total Protein (6.3-8.2) g/dL Albumin (3.5-5.0) g/dL 02/05/20 02/05/20 02/06/20 Range/Units 20:40 23:30 06:19 WBC (3.8-10.6) k/uL RBC 3.68 L (4.30-5.90) m/uL Hgb 11.7 L (13.0-17.5) gm/dL Hct 36.4 L (39.0-53.0) % Neutrophils # (1.3-7.7) k/uL Monocytes # (0-1.0) k/uL Sodium (137-145) mmol/L Chloride (98-107) mmol/L Carbon Dioxide (22-30) mmol/L Calcium (8.4-10.2) mg/dL Troponin I 0.213 H* 0.219 H* (0.000-0.034) ng/mL Total Protein (6.3-8.2) g/dL Albumin (3.5-5.0) g/dL 02/05/ Range/Units 06:19 WBC (3.8-10.6) k/uL RBC (4.30-5.90) m/uL Hgb (13.0-17.5) gm/dL Hct (39.0-53.0) % Neutrophils # (1.3-7.7) k/uL Monocytes # (0-1.0) k/uL Sodium (137-145) mmol/L Chloride 108 H (98-107) mmol/L Carbon Dioxide (22-30) mmol/L Calcium 8.2 L (8.4-10.2) mg/dL Troponin I (0.000-0.034) ng/mL Total Protein 5.6 L (6.3-8.2) g/dL Albumin 3.0 L (3.5-5.0) g/dL Thrombosis Risk Factor Assmnt - Choose All That Apply Any of the Below Risk Factors Present?: No Other Risk Factors: Yes Each Risk Factor Represents 2 Points: Age 61-74 years Other congenital or acquired thrombophilia - If yes, enter type in comment: No Thrombosis Risk Factor Assessment Total Risk Factor Score: 2 Thrombosis Risk Factor Assessment Level: Low Risk Assessment and Plan Assessment: Rapid A. fib flutter, recent ablation one week ago Systolic CHF, chronic, EF 45-50% Advanced COPD, emphysema, reported FEV1 of 34% Former nicotine dependence Gastroesophageal reflux disease Previous history of pulmonary nodules in the right apical area, with recent follow-up CT showing evidence of resolution, and 1.2 cm pretracheal nodule. Plan: Continue on current medication regime ,monitoring and symptomatic treatment. Cardizem drip/antiarrhythmics as per cardiology. Scheduled for PRATIK and cardioversion tomorrow. Anticoagulation as per cardiology. Prognosis guarded given multiple complex medical issues. ( The impression and plan of care has been dictated as directed. : I performed a history and examination of this patient, discussed the same with the dictator. I agree with the dictator's note ,documented as a scribe. Any additional findings or plans will be noted.
--- NOTE | 2020-02-06 15:39 | CONS ---
NELDA Flowers is a 64-year-old gentleman with history of persistent atrial fibrillation for which he underwent ablation 2 weeks ago, came to the hospital with persistent tachycardia, was found to be in atrial flutter. He is currently on intravenous Cardizem, Eliquis, Lipitor and Lopressor with good rate control. Patient does not have any other symptoms. There is no history of shortness of breath, chest pain, leg edema, PND or orthopnea. PAST MEDICAL HISTORY: Significant for persistent atrial fibrillation status post ablation, dyslipidemia and COPD. MEDICATIONS: At home included Prilosec, Cardura, Qvar, Lipitor, Eliquis, and Lopressor. ALLERGIES: PENICILLIN. FAMILY HISTORY: Negative for premature coronary artery disease. SOCIAL HISTORY: Negative for current smoking, EtOH abuse, or drug abuse. REVIEW OF SYSTEMS: HEENT: Unremarkable. CARDIAC: As described above. RESPIRATORY: As described above. GI: Negative. GENITOURINARY: Negative. ALLERGY/IMMUNOLOGY: Negative. SKIN: Negative. MUSCULOSKELETAL: Negative. ENDOCRINE: Negative. DERM: Negative. CONSTITUTIONAL: Negative ONCOLOGICAL: Negative. PAINTER MAINTENANCE: Negative. Rest of the system review is not relevant. PHYSICAL EXAM: Heart rate is 69 beats per minute, regular. Blood pressure is 116/66, respiratory rate is 18, O2 saturation is 97% on room air. There is no jugular venous distention. Carotid upstroke is diminished. There is no bruit. Chest exam reveals good air entry bilaterally. Heart exam reveals first and second heart sounds, irregular rhythm, no murmur. Abdomen is soft. Exam of extremities did not reveal any edema. Peripheral pulses are felt. LABS: Showed that the troponin is 0.2, 0.2, 0.2. ASSESSMENT: 1. Atypical atrial flutter. 2. History of persistent atrial fibrillation status post ablation. 3. Elevated troponin secondary to fast heart rate and supply-demand mismatch. PLAN: I am going to stop the IV Cardizem, continue the Eliquis, schedule him for cardioversion tomorrow. MMODL / IJN: [id number] /
[2020-02-06] MEDS: DILTIAZEM 125 MG in SODIUM CHLORIDE 0.9% 100 ML IV SCH (16:40)
[2020-02-06] MEDS: ATORVASTATIN 20 MG TAB PO SCH (19:30)
[2020-02-06] MEDS: DOXAZOSIN 1 MG TAB PO SCH (19:33)
[2020-02-06] MEDS ORDERED: LACTATED RINGERS 1,000 ML IV SCH (23:49)
[2020-02-07] MEDS ORDERED: BENZOCAINE SPRAY 1 CAN TOPICAL PRN (06:00)
[2020-02-07] MEDS ORDERED: MIDAZOLAM 2 MG/2 ML VIAL IV ONE (06:00)
[2020-02-07] MEDS ORDERED: fentaNYL (PF) 50 MCG/ML 5 ML AMP IVP ONE (06:00)
[2020-02-07] MEDS: METOPROLOL TARTRATE 50 MG TAB PO SCH (09:13)
[2020-02-07] MEDS: APIXABAN 5 MG TAB PO SCH (09:13)
[2020-02-07] MEDS ORDERED: IV FLUID CONTINUATION 1,000 ML IV ONE (10:12)
[2020-02-07] MEDS: BENZOCAINE SPRAY 1 CAN TOPICAL ONE ×2 (10:16→10:25)
[2020-02-07] MEDS ORDERED: PROPOFOL 10 MG/ML 20 ML VIAL IV ONE (10:25)
[2020-02-07] MEDS ORDERED: SODIUM CHLORIDE 0.9% 1,000 ML IV SCH (11:00)
--- NOTE | 2020-02-07 11:15 | ECHOT ---
TRANSESOPHAGEAL ECHOCARDIOGRAM TRANSESOPHAGEAL ECHO: INDICATION: Atrial flutter, rule out intracardiac thrombus prior to cardioversion. PROCEDURE NOTE: After obtaining informed consent, transesophageal echocardiogram is performed in left lateral position using an Omni plane probe. Local and IV sedation were obtained by the embedder. We obtained a 2D color Doppler and color Doppler and information. Patient also received agitated saline contrast. FINDINGS: 1. There is no intracardiac thrombus within the left atrial appendage, left atrium, right atrium, right ventricle. 2. Left ventricle has normal size and systolic function. 3. Mitral valve shows mild mitral regurgitation. 4. Aortic valve is free of stenosis or regurgitation. 5. There is mild tricuspid regurgitation. 6. Left atrium appears mildly enlarged. CONCLUSION: No intracardiac thrombus. PLAN: Patient will undergo cardioversion. CARDIOVERSION NOTE: After obtaining informed consent, ensuring that there is no intracardiac thrombus and patient on Eliquis 5 b.i.d., he was electrically cardioverted. He received 200 joules of synchronized DC current and following a single shock. converted to sinus rhythm and stayed in sinus rhythm. He will be discharged home on Eliquis and Lopressor 25 b.i.d. MMODL / IJN: [id number] /
[2020-02-07 11:17] VITALS: RESP 18
[2020-02-07 12:20] VITALS: BP 94/68; PULSE 75; TEMP 97.5
[2020-02-07] MEDS: SODIUM CHLORIDE 0.9% 1,000 ML IV SCH (12:42)
--- NOTE | 2020-02-07 17:07 | P.DS ---
Providers Date of admission: 02/05/20 18:09 Expected date of discharge: 02/07/20 Attending physician: Mike Loza Consults: 02/05/20 18:10 Consult Physician Urgent Consulting Provider: Jacky Teran Consult Reason/Comments: Atrial flutter with RVR, elevated troponin Do you want consulting provider notified?: Yes Primary care physician: Dennis Padilla - Discharge Diagnosis(es) (1) Atrial flutter with rapid ventricular response Current Visit: Yes Status: Acute (2) Elevated troponin Current Visit: Yes Status: Acute (3) Atrial fibrillation with RVR Current Visit: No Status: Acute (4) COPD exacerbation Current Visit: No Status: Acute (5) Cough Current Visit: No Status: Acute (6) Systolic congestive heart failure Current Visit: No Status: Acute Hospital Course: This is 64-year-old gentleman with history of advanced emphysema, reported FEV of 34%, chronic A. fib/ flutter, recent successful ablation last , obstructive sleep apnea, wears CPAP, and multiple other medical issues presented to the ER with complaints of heart racing. Denies chest pain. Chest x-ray reporting no acute cardiopulmonary process. EKG reporting atrial flutter with variable AV block, incomplete right bundle branch block, septal and inferior infarct, age undetermined, rapid rate, in the high 140s to 150. Troponin 0.211, 0.213, 0.219. Mildly Hypotensive on admission with systolic 90. Afebrile, elevated WBC 12 on admission, now resolved. Maintaining O2 sats in the low 90s on room air 02/07/2020 patient is currently sitting up in bed at this time with no complaints reported. He denies chest pain pressure, difficulty breathing, shortness of breath. He is alert and oriented 3 following all commands moving all extremities and is wanting to go home. Today he underwent PRATIK by Dr. Snowden to assess for thrombus which was negative for such. He then was cardioverted into a sinus rhythm in which she received 200 J of synchronized DC current missing shock. Also recent vitals are afebrile 97.5 pulse rate 75 normal sinus rhythm, respiratory rate of 18, on room air satting 97%, blood pressure 94/68. Most recent lab work was completed yesterday morning white blood cell count 10.3, hemoglobin 11.7, hematocrit 36.8, platelet count 228. Chemistry revealed sodium 137, potassium 4.6, albumin 15, creatinine 0.89. Troponins were elevated 0.219 on 02/05/2020 2300 was last. Assessment: Rapid A. fib flutter recent ablation 1 week ago Systolic congestive heart failure chronic with ejection fraction 45%. Maki COPD, emphysema with reported FEV1 of 34%. Former nicotine dependence. Gastroesophageal reflux disease. Previous history of pulmonary nodules in the right apical area, with recent follow-up CT showed evidence of resolution in her room 1.2 cm pretracheal nodule. Post PRATIK with cardioversion. Patient Condition at Discharge: Stable Plan - Discharge Summary Discharge Rx Participant: No New Discharge Prescriptions: Continue Omeprazole [PriLOSEC] 20 mg PO DAILY PRN PRN Reason: Heartburn Multivitamins, Thera [Multivitamin (formulary)] 1 tab PO DAILY Umeclidinium Brm/Vilanterol Tr [Anoro Ellipta 62.5-25 Mcg INH] 1 puff INHALATION RT-DAILY Beclomethasone Dip 80 Mcg/Puff [Qvar 80 mcg] 2 puff INHALATION RT-BID Apixaban [Eliquis] 5 mg PO BID Atorvastatin [Lipitor] 20 mg PO HS Metoprolol Tartrate [Lopressor] 50 mg PO BID Doxazosin [Cardura] 1 mg PO HS Discharge Medication List Omeprazole [PriLOSEC] 20 mg PO DAILY PRN 11/25/18 [History] Beclomethasone Dip 80 Mcg/Puff [Qvar 80 mcg] 2 puff INHALATION RT-BID 04/09/19 [History] Multivitamins, Thera [Multivitamin (formulary)] 1 tab PO DAILY 04/09/19 [History] Umeclidinium Brm/Vilanterol Tr [Anoro Ellipta 62.5-25 Mcg INH] 1 puff INHALATION RT-DAILY 04/09/19 [History] Apixaban [Eliquis] 5 mg PO BID 05/28/19 [History] Atorvastatin [Lipitor] 20 mg PO HS 12/06/19 [History] Doxazosin [Cardura] 1 mg PO HS 12/06/19 [History] Metoprolol Tartrate [Lopressor] 50 mg PO BID 12/06/19 [History] Follow up Appointment(s)/Referral(s): Denia,Mike Jr, DO [Doctor of Osteopathic Medicine] - 1 Week Patient Instructions/Handouts: Atrial Flutter (DC), Cardioversion (DC) Discharge Disposition: HOME SELF-CARE Plan of Treatment: We'll continue current medications previous prescribed. We'll follow up with Dr. Loza in one week Will follow-up with cardiology in 1-2 weeks. We'll continue home medications as previously prescribed.
--- NOTE | 2020-02-09 06:56 | CDI ---
Documentation Clarification Form Date: 02/09/20 From: Rosa Elena White Phone: If you have a question about this query, please contact Mendy Woodward Route Jumper at [phone] between 8am and 5pm. Admit Date: 02/05/20 Discharge Date:02/07/20 Patient Name: Lionel Villar Visit Number: [id number] ATTENTION: The Clinical Documentation Specialists (CDI) and [facility] Coding Staff appreciate your assistance in clarifying documentation. Please respond to the clarification below the line at the bottom and electronically sign. The CDI & [facility] Coding staff will review the response and follow-up if needed. Please note: Queries are made part of the Legal Health Record. If you have any questions, please contact the author of this message via ITS. Dear Dr. Snowden Patient presented with troponin of: 0.211. Documentation in your consult note stated elevated troponin secondary to fast heart rate and supply-demand mismatch. Patient history/risk factors: Atypical atrial flutter, persistent atrial fibrillation, hypotension Clinical indicators: Elevated troponin Lab: Troponin 0.211, 0.213, 0.219 Treatment: Cardioversion for atrial flutter, IV Ditiazem In your professional opinion, can you please specify the diagnosis, if any, indicated by the above clinical indicators and treatment? Supply demand mismatch only PR Type II Other, please specify Unable to determine MTDD
== END 2020-02-07 18:08 | disposition home or self-care (01) | DRG 309 ==
LOC: EC 15:43 → 3SCARD 18:09
PROVIDERS: ADMIT Family Medicine; ATTEND Family Medicine
PROC: 5A2204Z Restoration of Cardiac Rhythm, Single (ICD-10-PCS; principal; 2020-02-07 10:00)
DX: I48.4 Atypical atrial flutter (principal); I50.22 Chronic systolic (congestive) heart failure; I48.19 Other persistent atrial fibrillation; E78.5 Hyperlipidemia, unspecified; I44.30 Unspecified atrioventricular block; I45.10 Unspecified right bundle-branch block; J43.9 Emphysema, unspecified; K21.9 Gastro-esophageal reflux disease without esophagitis; G47.33 Obstructive sleep apnea (adult) (pediatric); I95.9 Hypotension, unspecified; Z11.59 Encounter for screening for other viral diseases; I25.2 Old myocardial infarction; I07.1 Rheumatic tricuspid insufficiency; M53.82 Other specified dorsopathies, cervical region; Z79.01 Long term (current) use of anticoagulants; Z79.899 Other long term (current) drug therapy; Z85.820 Personal history of malignant melanoma of skin; Z87.891 Personal history of nicotine dependence; Z88.0 Allergy status to penicillin; Z99.89 Dependence on other enabling machines and devices; Z80.9 Family history of malignant neoplasm, unspecified; Z82.49 Family history of ischemic heart disease and other diseases of the circulatory system; R79.89 Other specified abnormal findings of blood chemistry
CPT/HCPCS: 36415; 71046; 80053; 83735; 84443; 84484; 85025; 85610; 85730; 92960; 93005; 93312; 93320; 93325; 96361; 96365; 96376; 99285

== ENCOUNTER → 2022-03-28 | Outpatient (CLI) | payer MEDICARE ==
--- NOTE | 2022-03-28 17:50 | CA ---
Transthoracic Echo Report Name: Lionel Villar Age: 67 Gender: M : 1955 Exam Date: 03/28/2022 13:56 Exam Location: [facility] Ht (in): 72 Wt (lb): 209 Ordering Physician: Mehran Miles DO Attending/Referring Phys: Exhaust Worker Cindi German RDCS Procedure CPT: Indications: J44.9 COPD Cardiac Hx: Technical Quality: Fair Contrast 1: Total Dose (mL): Contrast 2: Total Dose (mL): MEASUREMENTS (Male / Female) Normal Values 2D ECHO LV Diastolic Diameter PLAX 4.2 cm 4.2 - 5.9 / 3.9 - 5.3 cm LV Systolic Diameter PLAX 2.7 cm IVS Diastolic Thickness 1.2 cm 0.6 - 1.0 / 0.6 - 0.9 cm LVPW Diastolic Thickness 1.2 cm 0.6 - 1.0 / 0.6 - 0.9 cm LV Relative Wall Thickness 0.6 RV Internal Dim ED PLAX 3.6 cm LA Systolic Diameter LX 3.2 cm 3.0 - 4.0 / 2.7 - 3.8 cm LA Volume 47.8 cm??? 18 - 58 / 22 - 52 cm??? M-MODE Aortic Root Diameter MM 3.5 cm MV E Point Septal Separation 0.3 cm AV Cusp Separation MM 2.0 cm DOPPLER AV Peak Velocity 162.9 cm/s AV Peak Gradient 10.6 mmHg MV Area PHT 3.5 cm??? Mitral E Point Velocity 76.0 cm/s Mitral A Point Velocity 55.3 cm/s Mitral E to A Ratio 1.4 MV Deceleration Time 217.1 ms FINDINGS Left Ventricle Left ventricular ejection fraction is estimated at 55-60 %. Left ventricular cavity size normal. Borderline left ventricular hypertrophy. Right Ventricle Mild right ventricular dilatation. Unable to estimate the right ventricular systolic pressure, no TR jet Right Atrium Normal right atrial size. Left Atrium Normal left atrial size. No patent foramen ovale. Mitral Valve Structurally normal mitral valve. No mitral stenosis, regurgitation or prolapse. Aortic Valve Trileaflet aortic valve. No aortic valve stenosis or regurgitation. Tricuspid Valve Structurally normal tricuspid valve. Pulmonic Valve Pulmonic valve not well visualized. Pericardium Normal pericardium. No pericardial effusion. Aorta Normal size aortic root and proximal ascending aorta. CONCLUSIONS Normal LV systolic function Previewed by: Dr. Ervin Snowden MD (Electronically Signed) Final Date: 28 March 2022 17:49
--- NOTE | 2022-03-28 18:27 | CT ---
EXAMINATION TYPE: CT chest wo con DATE OF EXAM ORDERED: 03/28/2022 HISTORY: . Lung cancer screening CT DLP: [address] CTDI: mGy Automated exposure control for dose reduction was used. SCREENING VISIT: Initial COMPARISON: 03/08/2019 TECHNIQUE: Low dose computed tomography scan was performed through the chest at 1 mm thick sections a nd reconstructed images in the coronal plane at [address] DIAGNOSTIC QUALITY: Satisfactory FINDINGS: LUNG NODULES: None. LUNGS: COPD: Severity: None Fibrosis: Severity: None Lymph nodes: None Other findings: None RIGHT PLEURAL SPACE: Effusion: None Calcification: None Thickening: None Pneumothorax: None LEFT PLEURAL SPACE: Effusion: None Calcification: None Thickening: None Pneumothorax: None HEART: Heart Size: Normal Coronary calcification: Mild to moderate Pericardial effusion: Resolved. OTHER FINDINGS: Upper abdomen: Normal Bony thorax: Normal Supraclavicular region: Normal Other: Ascending thoracic aorta at the level the main pulmonary artery measures 3.9 cm. The main pul monary artery at the bifurcation measures 3.5 cm. IMPRESSION: 1. No suspicious changes to suggest primary or metastatic neoplasm. FOLLOW UP CT CHEST RECOMMENDATION: Follow-up low-dose CT chest [address] LUNG RAD: Lung-Rad 1 Negative
== END | disposition home or self-care (01) ==
LOC: RADECHMAIN 13:50
PROVIDERS: ATTEND Internal Medicine Critical Care Medicine
DX: J44.9 Chronic obstructive pulmonary disease, unspecified (principal)
CPT/HCPCS: 71250; 93306